=== PATIENT | female | born 1955 | race Caucasian/White ===

== ENCOUNTER → 2018-05-24 10:17 | Outpatient (CLI) | payer OTHER, SELFPAY | PROVIDERS: PCP Family Medicine; Visit Provider Student in an Organized Health Care Education/Training Program | DX: R00.2 Palpitations (principal); I49.1 Atrial premature depolarization | CPT/HCPCS: 0298T ==

== ENCOUNTER 2018-07-07 00:10 | Outpatient (CLI) | payer OTHER, SELFPAY ==
--- NOTE | 2018-07-07 15:13 | DI.MAMMO_ITS ---
SYMPTOM/DIAGNOSIS: SCREENING, Z12.31 MAMMOGRAMS: Mammograms were interpreted according to the usual protocol including computer analysis with CAD system, tomosynthesis and C view imaging. Comparison is made with prior examinations. Breast density, category B. No suspicious microcalcifications are seen. No suspicious masses are seen in the left breast. There is a focal asymmetric density in the central right breast on the CC view. This area should be further evaluated with spot compression view. Ultrasound may be indicated at that time. IMPRESSION: Additional views of the right breast as described above. Category 0. MQSA ASSESSMENT OF FINDINGS: Incomplete: Needs additional imaging evaluation. Category 0. Patient will receive a letter notifying them of these results. BI-RADS category B. There are scattered areas of fibroglandular density.
== END 2018-07-07 00:30 ==
PROVIDERS: PCP Family Medicine; Visit Provider Family Medicine
DX: Z12.31 Encounter for screening mammogram for malignant neoplasm of breast (principal); R92.8 Other abnormal and inconclusive findings on diagnostic imaging of breast
CPT/HCPCS: 77063; 77067

== ENCOUNTER 2018-07-21 01:15 | Outpatient (CLI) | payer OTHER, SELFPAY ==
--- NOTE | 2018-07-21 14:20 | DI.COMBO_ITS ---
SYMPTOM/DIAGNOSIS: F.U ABNL MAMMO, ASYMMETRIC DENSITY RIGHT BREAST ADDITIONAL VIEWS AND RIGHT BREAST ULTRASOUND: Additional images are interpreted according to the usual protocol including tomosynthesis and 2D imaging. There is again seen a well circumscribed, 0.6 mm. nodule in the posterior aspect of the right breast seen on the craniocaudad view. Prior examinations do show a nodular area in this region measuring 4-5 mm. No definite suspicious findings are seen mammographically. A right breast ultrasound was performed. All four quadrants of the right breast were evaluated sonographically. No cystic or solid masses are seen. IMPRESSION: No evidence for malignancy at this time. A 6 month follow up right mammogram is requested for re-evaluation. Category 3. The findings were discussed with the patient and her family. MQSA ASSESSMENT OF FINDINGS: Probably benign. Six month follow-up recommended. Category 3. Patient will receive a letter notifying them of these results. BI-RADS category B. There are scattered areas of fibroglandular density.
== END 2018-07-21 01:35 ==
PROVIDERS: PCP Family Medicine; Visit Provider Family Medicine
DX: Z12.31 Encounter for screening mammogram for malignant neoplasm of breast (principal); R92.8 Other abnormal and inconclusive findings on diagnostic imaging of breast; N60.81 Other benign mammary dysplasias of right breast
CPT/HCPCS: 76642; 77061; 77065; G0279

== ENCOUNTER 2018-12-23 02:08 | Outpatient (CLI) | payer OTHER, SELFPAY ==
[2018-12-23 10:45] LABS: Hemoglobin A1C 8.8 % (4.5-6.2)
== END 2018-12-23 02:28 ==
PROVIDERS: PCP Family Medicine; Visit Provider Family Medicine
DX: E11.65 Type 2 diabetes mellitus with hyperglycemia (principal)
CPT/HCPCS: 36415; 83036

== ENCOUNTER → 2018-12-29 16:37 | Outpatient (REF) | payer OTHER, SELFPAY ==
--- NOTE | 2018-12-29 14:30 | PAPFT_PTH ---
PATIENT: Debbie Lezama LOC: [facility] U#:[id number] AGE/SX: 70/F ROOM: RE12/29/[address]: Mateo Oneal MD : 1955 BED: DIS: SPEC #: [id number] RECD: 01/01/19 12:20 STATUS: GISSEL REQ #: [id number] ASHLEE: 12/29/18 14:[address]: Mateo Oneal DEPT: [facility] Cytology RECD BY: Taina Wilhelm Tissues: 1 - CX/ENDOCX FOR PAP SMEARS Procedures: PAP THIN PREP/UVM Screening Comments: [id number] (UNSATISFACTORY FOR EVALUATION)
== END ==
LOC: LBN 16:37
PROVIDERS: PCP Family Medicine; Visit Provider Family Medicine
DX: Z12.4 Encounter for screening for malignant neoplasm of cervix (principal); Z11.51 Encounter for screening for human papillomavirus (HPV)
CPT/HCPCS: 88142; 87624

== ENCOUNTER 2019-01-01 21:04 | Emergency (ER) | payer OTHER, SELFPAY ==
[2019-01-01 21:15] VITALS: BP 173/81; PULSE 83; RESP 18; TEMP 36.6; O2SAT 98
--- NOTE | 2019-01-01 21:29 | W.ED.GENAD ---
Discharge Plan Disposition Patient Disposition: HOME Condition: Improving Discharge Details Chief Complaint: Orthopedic Clinical Impression: Osteoarthritis of left shoulder region Primary Care Provider: Mateo Oneal ED Provider: Michael Bai Home Meds and New Rx's Prescriptions: Continued atorvastatin 80 mg tablet 80 mg PO DAILY Qty: 90 RF: 3 pen needle, diabetic [Pen Needle] 31 gauge x 5/16 needle 1 ea Miscellaneous QID Qty: 120 RF: 11 aspirin [Aspir-81] 81 MG tablet,delayed release (DR/EC) 81 mg PO DAILY RF: 0 Metoprolol Succinate 200 MG TAB.ER.24H 200 mg PO DAILY Qty: 90 RF: 4 blood-glucose meter [MetroLinkedTouch UltraMini] 1 EACH kit 1 ea Miscellaneous TID Qty: 1 RF: 0 lansoprazole [Prevacid] 30 MG capsule,delayed release(DR/EC) 1 cap PO DAILY Qty: 90 RF: 3 metformin 500 mg tablet 1,000 mg PO BID Qty: 360 RF: 3 Lyrica 75 mg capsule 75 mg PO BID Qty: 60 RF: 5 Lantus Solostar U-100 Insulin 100 unit/mL (3 mL) insulin pen 70 unit Sub-Q HS Qty: 20 RF: 8 Humalog KwikPen Insulin 200 unit/mL (3 mL) insulin pen 25 - 35 unit subcut TID Qty: 15 RF: 11 lisinopril 5 mg tablet 5 mg PO DAILY Qty: 90 RF: 3 bupropion HCl [Wellbutrin SR] 150 mg tablet sustained-release 12 hr 150 mg PO BID Qty: 60 RF: 11 clopidogrel 75 mg tablet 75 mg PO DAILY Qty: 90 RF: 4 Jardiance 10 mg tablet 10 mg PO DAILY Qty: 30 RF: 5 Blood Glucose Test strip 1 ea Miscellaneous TID Qty: 400 RF: 3 lancets [BD Ultra Fine Lancets] 33 gauge misc .ROUTE .MEDSUPPLY Qty: 300 RF: 3 nitroglycerin 0.4 mg tablet, sublingual 0.4 mg Sublingual q 5 min prn MDD 3 tabs Qty: 25 RF: 0 furosemide [Lasix] 20 mg tablet 20 mg PO DAILY PRN (Reason: edema) Qty: 30 RF: 3 Discharge Instructions Instructions: Arthritis (ED) Additional Instructions: Please wear sling for comfort 3-7 days time. Remove 2-3 times daily and perform gentle range of motion exercises as we discussed. Ice to area to reduce discomfort please use 20 minutes at a time. Continue your regular medications. Please follow-up with physical therapy as prescribed. Return if you develop a rash, increasing discomfort, or any other acute concern Stand Alone Forms: Physical Therapy Referral Medical Decision Making 63-year-old female with a number of chronic medical conditions who presents to the ER complaining of 7 days of aching left shoulder pain is worse with movement. There is no antecedent injury. She has not been ill in any other way. Her vital signs are reassuring with note of some hypertension. She is tender anteriorly along the proximal humerus. Differential diagnosis includes calcific tendinitis, occult fracture, osteoarthritis. Patient had screening EKG obtained and referred for x-ray. There is no acute fracture or dislocation. Discussed with the patient consideration of injection with Kenalog and local anesthetic which she declined. We will place in a sling for comfort with use of ice at home. Discussed with her the avoidance of a frozen shoulder and use of range of motion exercises daily and I will prescribed per physical therapy. Consistent with flare of osteoarthritis. She is stable for discharge to home. ECG Data Attestation: I personally reviewed and interpreted this ECG (s) as follows: Interpretation: Normal sinus rhythm with a rate of 67, the QRS is narrow, there is no ST segment elevation. HPI General Mode of arrival: ambulatory. Date/Time Provider Initiated Documentation: 01/01/19 21:23. Limitations to Documentation: no limitations. Information obtained by: patient. History of Present Illness 63 year old F presents to the emergency department with the chief complaint of Left shoulder pain times 7 days, described as moderate, Quality is described as aching and dull, and is localized to the left and upper extremity. Patient reports no radiation. Patient started experiencing this day(s) Rest improves symptom(s), Movement worsens symptoms . Patient notes no other symptoms.; denies chest pain. Patient did receive the following treatments prior to arrival, none Related Data Home Medications Medication Instructions Recorded Confirmed aspirin [Aspir-81] 81 mg PO DAILY tab-cap 01/04/17 12/29/18 blood-glucose meter [OneTouch #1 kit 03/07/18 12/29/18 UltraMini] lansoprazole [Prevacid] 1 cap PO DAILY #90 tab-cap 05/24/18 12/29/18 metformin 500 mg tablet 1,000 mg PO BID #360 tab 06/23/18 12/29/18 pregabalin 75 mg capsule 75 mg PO BID #60 cap 08/29/18 12/29/18 insulin glargine (U-100) 100 70 unit SUB-Q HS #20 ml 11/08/18 12/29/18 unit/mL (3 mL) subcutaneous pen insulin lispro (U-200) 200 unit/mL 25 - 35 unit SUBCUT TID #15 pen 11/17/18 12/29/18 (3 mL) subcutaneous pen bupropion HCl SR 150 mg tablet,12 150 mg PO BID #60 tab-cap 12/18/18 12/29/18 hr sustained-release clopidogrel 75 mg tablet 75 mg PO DAILY #90 tab-cap 12/18/18 12/29/18 lisinopril 5 mg tablet 5 mg PO DAILY #90 tab-cap 12/18/18 12/29/18 atorvastatin 80 mg tablet 80 mg PO DAILY #90 tab-cap 12/29/18 12/29/18 pen needle, diabetic 31 gauge x #120 ndl 12/29/18 12/29/1803/01 blood sugar diagnostic strips #400 strip 01/01/19 empagliflozin 10 mg tablet 10 mg PO DAILY #30 tab 01/01/19 furosemide 20 mg tablet 20 mg PO DAILY PRN #30 tab-cap 01/01/19 lancets 33 gauge #300 each 01/01/19 nitroglycerin 0.4 mg sublingual 0.4 mg SUBLINGUAL q 5 min prn #25 01/01/19 tablet tab-cap MDD 3 tabs Previous Rx's Medication Instructions Recorded blood-glucose meter [OneTouch #1 kit 03/07/18 UltraMini] lansoprazole [Prevacid] 1 cap PO DAILY #90 tab-cap 05/24/18 metformin 500 mg tablet 1,000 mg PO BID #360 tab 06/23/18 pregabalin 75 mg capsule 75 mg PO BID #60 cap 08/29/18 insulin glargine (U-100) 100 70 unit SUB-Q HS #20 ml 11/08/18 unit/mL (3 mL) subcutaneous pen insulin lispro (U-200) 200 unit/mL 25 - 35 unit SUBCUT TID #15 pen 11/17/18 (3 mL) subcutaneous pen bupropion HCl SR 150 mg tablet,12 150 mg PO BID #60 tab-cap 12/18/18 hr sustained-release clopidogrel 75 mg tablet 75 mg PO DAILY #90 tab-cap 12/18/18 lisinopril 5 mg tablet 5 mg PO DAILY #90 tab-cap 12/18/18 atorvastatin 80 mg tablet 80 mg PO DAILY #90 tab-cap 12/29/18 pen needle, diabetic 31 gauge x #120 ndl 12/29/1803/01 blood sugar diagnostic strips #400 strip 01/01/19 empagliflozin 10 mg tablet 10 mg PO DAILY #30 tab 01/01/19 furosemide 20 mg tablet 20 mg PO DAILY PRN #30 tab-cap 01/01/19 lancets 33 gauge #300 each 01/01/19 nitroglycerin 0.4 mg sublingual 0.4 mg SUBLINGUAL q 5 min prn #25 01/01/19 tablet tab-cap MDD 3 tabs Allergies Allergy/AdvReac Type Severity Reaction Status Date / Time Penicillins Allergy Severe Anaphylaxsi Unverified 12/29/18 14:11 s General Stated Complaint: Orthopedic CHRISSY: 3 Review of Systems Review of Systems No chest pain, palpitations, shortness of breath. No fall or injury. No rash. 8 systems reviewed and otherwise negative [facility] Medical History CAD (coronary artery disease) Diabetes History of tobacco abuse RI (myocardial infarction) Obesity Surgical History Bilateral salpingectomy with oophorectomy Cervical Conization/LEEP (~2001) Colonoscopy - MAC (08/02/17) Stent placement Family History Mother Hyperlipidemia Ovarian cancer Father Diabetes Essential hypertension Heart disease Depression Hyperlipidemia Brother Diabetes Essential hypertension Depression Heart disease Hyperlipidemia Cancer Maternal Grandfather Diabetes Alcohol abuse Cancer Paternal Grandfather Diabetes Essential hypertension Heart disease Hyperlipidemia Paternal Grandmother Essential hypertension Heart disease Depression Diabetes Hyperlipidemia Sister Cancer Maternal Aunt Personal history of malignant neoplasm Sister Diabetes Heart disease Hyperlipidemia Stroke Sister Cancer Brother Essential hypertension Hyperlipidemia Stroke Brother No problems noted. Sister No problems noted. Son No problems noted. Daughter No problems noted. Social History Smoking/Tobacco Use Status: Former Tobacco Use Quit Date: 12/15/18 Alcohol Intake: never Drug use: Never Substance use type: does not use Caregiver/Support person: No Household members: spouse Housing: house Communication Needs: None Pets and animals: Yes Pets and animals: dog(s) Sexually active: No Do you think of yourself as: straight/heterosexual Current gender identity: female What is your relationship status?: How often do you talk on the phone with friends or family?: once per week How often do you get together with friends or relatives?: three or more times per week How often do you attend islam or spiritism services?: decline to answer Do you belong to any clubs or organized social groups?: no Panel score (0-1 are the most socially isolated patients): 2 Hailee/Quaker: Restorationism Special hailee needs: No Seatbelt use: always Helmet use: No Drive intox or ride w/intox local city driver: No Do you feel safe at home: Yes Do you feel safe in your relationship?: Yes Exam Narrative Exam Narrative: GEN: awake, alert, oriented 3. Pleasant, well groomed, interactive. HEAD: Normocephalic, atraumatic ENT: Mucous membranes moist, oropharynx unremarkable, External ear exam unremarkable EYES: PERRL, EOMI NECK: Full ROM, no SALVADOR, no menigismus CHEST/RESP: Nontender, clear to auscultation bilateral, no wheeze/rhonchi/rales CARDIOVASCULAR: RRR, no murmur, rub edward. 2+ Rad pulse bilateral ABDOMEN: Soft, nontender, no mass. +Bowel sounds EXT: Full ROM, no edema, no rash. Left anterior humerus is tender to palpation. Motor is 5 out of 5. Sensation intact throughout Neuro: Grossly normal neurologic exam, conversant, interactive. Psych: Speech fluent, thoughts congruent, affect normal Course Vital Signs Temperature 36.6 C 01/01/19 21:15 Pulse 83 01/01/19 21:15 Respiratory Rate 18 01/01/19 21:15 Blood Pressure 173/81 H 01/01/19 21:15 Pulse Oximetry 98 01/01/19 21:15 Temperature 36.6 C 01/01/19 21:15 Temperature Source Skin 01/01/19 21:15 Pulse 83 01/01/19 21:15 Respiratory Rate 18 01/01/19 21:15 Respiratory Effort Non-Labored 01/01/19 21:19 Blood Pressure 173/81 H 01/01/19 21:15 Blood Pressure Position Sitting 01/01/19 21:15 Pulse Oximetry 98 01/01/19 21:15 Oxygen Delivery Method Room Air 01/01/19 21:15 Oxygen Flow Rate 0 01/01/19 21:15 Pain Level 7 01/01/19 21:15
--- NOTE | 2019-01-01 22:15 | DI.RAD_ITS ---
SYMPTOM/DIAGNOSIS: LT ANTERIOR SHOULDER PAIN LEFT SHOULDER: The bony structures are normally mineralized. There are mild degenerative changes involving the glenohumeral and AC joint. There is no evidence of a fracture or dislocation.
--- NOTE | 2019-01-01 22:54 | DI.VRAD_ITS ---
EXAM: XR Left Shoulder, Complete, 2 or More Views EXAM DATE/TIME: 01/01/2019 9:29 PM CLINICAL HISTORY: 63 years old, female; Pain; Shoulder; Left; Patient HX: L anterior shoulder pain. No trauma or fall but has been aching for awhile now and getting worse TECHNIQUE: XR Left shoulder, complete 2 or more views. COMPARISON: No relevant prior studies available. FINDINGS: Bones/joints: No displaced fractures identified. Soft tissues: Normal. IMPRESSION: No acute findings. Dictated and Authenticated by: Fei Busch MD. Ordering:GARY Rodriguez MD
== END 2019-01-01 22:57 | disposition home or self-care (01) ==
PROVIDERS: Emergency Provider Emergency Medicine; PCP Family Medicine
DX: M19.011 Primary osteoarthritis, right shoulder (principal); E11.9 Type 2 diabetes mellitus without complications; I25.2 Old myocardial infarction
CPT/HCPCS: 93005; 99284; 73030; 93010; 99282; L3650

== ENCOUNTER 2019-01-09 01:10 | Outpatient (CLI) | payer OTHER, SELFPAY ==
--- NOTE | 2019-01-09 08:51 | DI.US_ITS ---
SYMPTOMS/DIAGNOSIS: ABD BLOATING, ABD PAIN, ABD DISTENSION, MOTHER WITH HX OF OVARIAN CA ABDOMINAL ULTRASOUND: The visualized liver parenchyma is normal in appearance. There is no evidence of cholelithiasis. The common bile duct is of normal diameter. The pancreas and spleen appear intact. No renal abnormality is seen. The abdominal aorta is of normal diameter. Normal appearance of IVC. CONCLUSION: Normal abdominal ultrasound. PELVIC ULTRASOUND: Pelvic ultrasound was performed transabdominally and transvaginally. Please see the accompanying data sheet for measurements of the pelvic structures. The uterus is heterogeneous and appears to contain multiple focal fibroids, the largest clearly identified presumed fibroid measures about 14 mm in diameter in the fundus. The endometrial stripe is less than 2 mm in thickness and appears homogeneous. No free fluid identified in the cul-de-sac. The ovaries are not ideally visualized but there is suggestion of bilateral ovarian enlargement and possible right ovarian or paraovarian complex mass may be present. Question mildly abnormal vascular flow to the right adnexa is possible. CONCLUSION: Indeterminate findings of the ovaries. Ovarian enlargement may be present bilaterally and there is a suspicion of a right ovarian mass. Correlation with pelvic MRI is recommended.
== END 2019-01-09 01:30 ==
PROVIDERS: PCP Family Medicine; Visit Provider Family Medicine
DX: R14.0 Abdominal distension (gaseous) (principal); R10.31 Right lower quadrant pain; Z80.41 Family history of malignant neoplasm of ovary; N83.8 Other noninflammatory disorders of ovary, fallopian tube and broad ligament; D25.9 Leiomyoma of uterus, unspecified
CPT/HCPCS: 76700; 76830; 76856

== ENCOUNTER 2019-01-16 01:50 | Outpatient (CLI) | payer OTHER, SELFPAY ==
[2019-01-16] MEDS: Gadoterate meglumine 20 ML VIAL 18 ML IVP (09:08)
--- NOTE | 2019-01-16 09:20 | DI.MRI_ITS ---
SYMPTOM/DIAGNOSIS: RT OVARIAN MASS ON US, N83.9, NONINFLAMMATORY DISORDER OF OVARY PELVIS MRI: A without and with contrast enhanced examination was performed. There is no evidence of free fluid. An ill defined right adnexal cyst is seen and measures approximately 5 by 3.8 by 3.4 cm. The cyst has simple cyst characteristics. The presence of adjacent bowel somewhat limits the evaluation. No bony abnormality is seen. The study is somewhat limited due to motion. SUMMARY: Ill defined right adnexal cyst with ill defined margins. A short interval follow up could be obtained with ultrasound and MRI in 3 months to assess stability.
--- NOTE | 2019-01-16 16:13 | DI.VRAD_ITS ---
EXAM: MR Pelvis Without and With Contrast EXAM DATE/TIME: 01/16/2019 9:30 AM CLINICAL HISTORY: 63 years old, female; Pain; Pelvic pain; Patient HX: RT ovarian mass. ; Additional info: Non-inflammatory disorder of ovary. TECHNIQUE: Imaging protocol: Magnetic resonance images of the pelvis without and with intravenous contrast. Contrast material: DOTAREM Contrast volume: 18 ml Contrast route: IV COMPARISON: US ABD PELV TRANSVAG NON-DIETETIC INTERN 01/09/2019 5:07 PM FINDINGS: Intraperitoneal space: No free fluid. Reproductive: There is an ill-defined right adnexal cyst like focus seen to measure up to 5.1 x 3.8 x 3.4 cm. No significant enhancing portion of the cyst is noted and the cystlike focus displays simple cyst characteristics. Adjacent bowel somewhat limits evaluation. Bones/joints: No fracture. Other findings: Motion somewhat limits evaluation IMPRESSION: Ill-defined right adnexal cystlike focus with simple features by MRI, but ill-defined margins. Short interval followup ultrasound and MRI in 3 months is recommended to assess for interval changes. Dictated and Authenticated by: Den Wilkes MD. Ordering:SPENCER Galindo MD
== END 2019-01-16 02:10 ==
PROVIDERS: PCP Family Medicine; Visit Provider Family Medicine
DX: N83.8 Other noninflammatory disorders of ovary, fallopian tube and broad ligament (principal)
CPT/HCPCS: 72197

== ENCOUNTER 2019-01-19 20:28 | Outpatient (CLI) | payer OTHER, SELFPAY ==
--- NOTE | 2019-01-19 14:55 | DI.MAMMO_ITS ---
SYMPTOMS/DIAGNOSIS: 6-MO F/U, F/U ABNORMAL MAMMO, R92.8 RIGHT BREAST MAMMOGRAM: Mammograms were interpreted according to the usual protocol including computer analysis with CAD system, tomosynthesis and C view imaging. Today's mammogram was obtained to follow an area of asymmetric density identified on previous mammogram of June 2018. The findings are less prominent on the current examination. No new mass or clumped microcalcification seen. CONCLUSION: No specific evidence of malignancy at this time. I would suggest that routine screening examinations resume with a bilateral mammogram in six months. Category 3, breast density category B. MQSA ASSESSMENT OF FINDINGS: Probably benign. Six month follow-up recommended. Category 3. Patient will receive a letter notifying them of these results. BI-RADS category B. There are scattered areas of fibroglandular density.
== END 2019-01-19 20:48 ==
PROVIDERS: PCP Family Medicine; Visit Provider Family Medicine
DX: Z12.31 Encounter for screening mammogram for malignant neoplasm of breast (principal); R92.8 Other abnormal and inconclusive findings on diagnostic imaging of breast; N64.59 Other signs and symptoms in breast
CPT/HCPCS: 77061; 77065; G0279

== ENCOUNTER 2019-01-23 13:54 | Outpatient (CLI) | payer OTHER, SELFPAY ==
[2019-01-24 09:35] LABS: CEA 1.3 ng/ml
[2019-01-24 12:52] LABS: CA 19-9 7 U/mL (<35)
[2019-01-24 12:54] LABS: CA 125 10 U/mL (0-30)
== END 2019-01-23 14:14 ==
PROVIDERS: PCP Family Medicine; Visit Provider Obstetrics & Gynecology
DX: N83.9 Noninflammatory disorder of ovary, fallopian tube and broad ligament, unspecified (principal)
CPT/HCPCS: 36415; 82378; 86304; 86301

== ENCOUNTER 2019-01-23 14:09 | Outpatient (REF) | payer OTHER, SELFPAY ==
--- NOTE | 2019-01-23 13:40 | PAPFT_PTH ---
PATIENT: Debbie Lezama LOC: N U#:[id number] AGE/SX: 63/F ROOM: RE01/23/[address]: Juan Vazquez MD : 1955 BED: DIS: 01/23/2019 SPEC #: [id number] RECD: 01/23/19 17:43 STATUS: IGSSEL [place] #: [id number] ASHLEE: 01/23/19 13:[address]: Juan Vazquez DEPT: [facility] [place] Cytology RECD BY: Lizette Roman ENTERED: 01/23/19 17:43 SP TYPE: PAPFT NEYR DR: Mateo Oneal MD Tissues: 1 - CX/ENDOCX FOR PAP SMEARS Procedures: PAP THIN PREP/UVM Screening HPV DNA PROBE Comments: [id number]
== END 2019-01-23 14:29 ==
LOC: LBN 14:09
PROVIDERS: PCP Family Medicine; Visit Provider Obstetrics & Gynecology
DX: Z12.4 Encounter for screening for malignant neoplasm of cervix (principal); Z11.51 Encounter for screening for human papillomavirus (HPV)
CPT/HCPCS: 88142; 87624

== ENCOUNTER → 2019-02-12 09:30 | Outpatient (BNVA) | payer OTHER, SELFPAY | PROVIDERS: PCP Family Medicine; Visit Provider Student in an Organized Health Care Education/Training Program | DX: I21.11 ST elevation (STEMI) myocardial infarction involving right coronary artery (principal); Z95.5 Presence of coronary angioplasty implant and graft; I10 Essential (primary) hypertension; Z79.01 Long term (current) use of anticoagulants; E78.5 Hyperlipidemia, unspecified; E11.9 Type 2 diabetes mellitus without complications; Z01.810 Encounter for preprocedural cardiovascular examination | CPT/HCPCS: 99215 ==

== ENCOUNTER 2019-03-07 12:50 | Outpatient (CLI) | payer OTHER, SELFPAY | END 2019-03-07 13:10 | PROVIDERS: PCP Family Medicine; Visit Provider Obstetrics & Gynecology | DX: Z01.818 Encounter for other preprocedural examination (principal) | CPT/HCPCS: J1580 ==

== ENCOUNTER 2019-03-07 13:32 | Outpatient (CLI) | payer OTHER, SELFPAY ==
[2019-03-07 13:56] LABS: HCT 33.3 % (36.0-46.0); HGB 9.7 g/dL (12.0-15.5); Mean Corp. HGB Concentration 29.1 g/dL (32.0-36.0); Mean Corpuscular Volume 72.1 fL (80-95); Mean Platelet Volume 10.1 fL (8.0-11.0); Platelet Count 473 x1000/uL (130-400); RBC 4.62 m/cumm (4.00-5.20); RBC Distribution Width 18.7 % (11.7-14.6); White Blood Cell Count 10.82 k/cumm (4.4-10.8)
== END 2019-03-07 13:52 ==
PROVIDERS: PCP Family Medicine; Visit Provider Obstetrics & Gynecology
DX: N83.8 Other noninflammatory disorders of ovary, fallopian tube and broad ligament (principal); Z01.818 Encounter for other preprocedural examination; E11.9 Type 2 diabetes mellitus without complications; I10 Essential (primary) hypertension
CPT/HCPCS: 36415; 85027; 86850; 86900; 86901

== ENCOUNTER 2019-03-08 07:00 | Day surgery (SDC) | payer OTHER, SELFPAY ==
[2019-03-08 07:31] VITALS: BP 175/94; PULSE 87; RESP 18; TEMP 36.8; O2SAT 95
[2019-03-08] MEDS: Lactated Ringers 1,000 ML 100 ML IV ×2 (08:07→11:30)
[2019-03-08] MEDS: CLINDAMYCIN 900 MG/50 ML BAG 50 MG IVPB (09:38)
--- NOTE | 2019-03-08 09:55 | VUL_PTH ---
PATIENT: Debbie Lezama LOC: [facility] U#:[id number] AGE/SX: 63/F ROOM: RE03/08/[address]: Juan Vazquez MD : 1955 BED: DIS: 03/08/2019 SPEC #: [id number] RECD: 03/08/19 11:49 STATUS: GISSEL RE #: [id number] ASHLEE: 03/08/19 09:[address]: Juan Vazquez DEPT: Surgical Specimen RECD BY: Lizette Roman ENTERED: 03/08/19 11:53 SP TYPE: VUL OTHR DR: Mateo Oneal MD Tissues: 1 - VULVA BIOPSY 2 - PERITONEUM/ERIC BIOPSY 3 - FALLOPIAN TUBE (OTHER) 4 - FALLOPIAN TUBE (OTHER) Procedures: GROSS AND MICRO LEVEL 4 Comments: [id number]
[2019-03-08] MEDS: Bupivacaine 0.25% Pres-Free 30 ML VIAL (10:24)
[2019-03-08 11:38] VITALS: BP 184/65; PULSE 83; RESP 17; TEMP 36.8
[2019-03-08 11:43] VITALS: BP 165/80; PULSE 95; RESP 15; TEMP 36.8
[2019-03-08 11:48] VITALS: BP 170/63; PULSE 85; RESP 16; TEMP 36.8
[2019-03-08 12:03] VITALS: BP 156/77; PULSE 74; RESP 12; TEMP 36.8
[2019-03-08] MEDS: HYDROcodone 5/Acetaminophen 325 TAB PO (13:02)
[2019-03-08 13:15] VITALS: BP 149/78; PULSE 82; RESP 16; TEMP 37.2; O2SAT 94
--- NOTE | 2019-03-08 16:30 | W.PM.OP ---
Date of service: 03/08/19 Time of Service: 16:30 Operative Note DATE OF PROCEDURE: 03/08/19 PRE-OP DIAGNOSIS: Ovarian cyst POST-OP DIAGNOSIS: other (1. Paraovarian cysts bilaterally. 2. Vulvar lesion) PROCEDURE: 1. Biopsy of vulvar lesion x 2 2. Laparoscopic bilateral salpingo-oophorectomy SURGEON: Juan Vazquez ASSISTING SURGEON: Nunu Mccoy ANESTHESIA: GETA ESTIMATED BLOOD LOSS: 0 PATHOLOGY: other (1. Vulvar biopsy x 2 2. Bilateral tubes and ovaries. ) COMPLICATIONS: None Patient was transported to: PACU Patient's condition: stable Findings: 1. Vulvar lesion at the clitoral mast suspicious for SCC 2. Pigmented hypopigmented lesion on perineum 3. bilateral para-ovarian cysts contained within the broad ligament but distinct from tubes and ovaries. Procedure Description: The patient was taken to the operating room and after general anesthesia was obtained the patient placed in lithotomy position. The patient was prepped and draped in usual sterile manner. On exam under anesthesia there were 2 suspicious skin lesions on the vulva. The first was involving the clitoral mast and was suspicious for SCC. The overall size of lesion in greatest dimension was 1 cm. On the perineum there were areas of hypo-and hyperpigmentation. With use of a Aubrey biopsy punch specimens were taken from both regions and biopsy sites were repaired with interrupted sutures of 4-0 Vicryl. A Larson catheter was placed in the bladder draining clear urine. A Hulka uterine manipulator was placed in the cervix. Attention was then turned to the patient's abdomen the surgeon was regloved. The skin and subcutaneous tissues at the umbilicus were infiltrated with 0.25% Marcaine solution. A small infraumbilical skin incision was then made with a #15 blade scalpel. Dissection was carried down to the underlying fascia which was grasped and elevated with 2 Liseth clamps. The fascia was incised sharply with the scalpel and the peritoneum was entered sharply with hemostats. 2 sutures of 0 Vicryl were placed at the fascial incision. A Gonzalez trocar was inserted and secured in place. A pneumoperitoneum to approximately 50 mmHg was established. Two 5 mm ports were placed in the right left lower quadrant both under direct visualization. A third 5 mm port was placed in the right upper quadrant due to the need to mobilize in order to best visualize the pelvis. The right tube and ovary was first examined. The ovary was noted to be normal in appearance. Within the broad ligament at the mesosalpinx a large cystic area measuring 4 to 5 cm in greatest dimension was noted. It seemed distinct from the fallopian tube and the ovary. The right ureter was identified at the pelvic brim. Dissection was first carried across the right infundibulopelvic ligament with LigaSure device with dissection carried down the broad ligament to the round ligament incorporating the cystic mass within the dissected area. The 2 ovary and paratubal cyst were removed en bloc. Attention was turned to the opposite side where a smaller para-ovarian cyst was noted. Again a similar dissection was carried out. Both specimens were removed with the use of an Endo Catch bag and submitted separately. All sites of dissection were noted with hemostatic. All 5 mm ports were removed under direct visualization. The abdomen was desufflated. The fascia at the umbilicus was closed with 2 retgzl-of-psiwv sutures of 0 Vicryl. The skin at each incision was closed with interrupted sutures of 4 Monocryl. Dermabond was applied. Procedure was concluded at this point. Sponge, lap, and needle counts were correct at the conclusion of the procedure. The procedure was tolerated well and the patient was transferred to PACU in stable condition.
== END 2019-03-08 13:45 | disposition home or self-care (01) ==
LOC: SUR 07:00
PROVIDERS: PCP Family Medicine; Visit Provider Obstetrics & Gynecology
PROC: (CPT 58661; principal; 2019-03-08 08:30)
DX: D07.1 Carcinoma in situ of vulva (principal); N83.8 Other noninflammatory disorders of ovary, fallopian tube and broad ligament; N94.89 Other specified conditions associated with female genital organs and menstrual cycle; E11.65 Type 2 diabetes mellitus with hyperglycemia; Z80.41 Family history of malignant neoplasm of ovary; Z79.4 Long term (current) use of insulin; Z87.42 Personal history of other diseases of the female genital tract
CPT/HCPCS: 58661; 56605; 56606; 88305; 88304; J1885; J2405; J3010

== ENCOUNTER 2019-03-17 11:03 | Emergency (ER) | payer OTHER, SELFPAY ==
[2019-03-17 11:09] VITALS: BP 165/68; PULSE 100; RESP 20; TEMP 36.8; O2SAT 98
--- NOTE | 2019-03-17 11:48 | ED.GENADUL_ITS ---
Discharge Plan Disposition Patient Disposition: HOME Condition: Good Discharge Details Chief Complaint: Cellulitis Clinical Impression: Incisional infection Primary Care Provider: Mateo Oneal ED Provider: Mica Kay Home Meds and New Rx's Prescriptions: New sulfamethoxazole-trimethoprim [Bactrim DS] 800-160 mg tablet 1 tab PO BID Qty: 14 RF: 0 hydrocodone-acetaminophen 5-325 mg tablet 1 tab PO Q6H Qty: 10 RF: 0 Continued pen needle, diabetic [Pen Needle] 31 gauge x 5/16 needle 1 ea Miscellaneous QID Qty: 120 RF: 11 rosuvastatin 40 mg tablet 40 mg PO QHS Qty: 90 RF: 0 lisinopril 5 mg tablet 10 mg PO DAILY Qty: 180 RF: 3 oxycodone-acetaminophen 5-325 mg tablet 1 tab PO Q6H MDD 4 PRN (Reason: pain) Qty: 5 RF: 0 aspirin [Aspir-81] 81 MG tablet,delayed release (DR/EC) 81 mg PO DAILY RF: 0 Metoprolol Succinate 200 MG TAB.ER.24H 200 mg PO DAILY Qty: 90 RF: 4 blood-glucose meter [[employer] UltraMini] 1 EACH kit 1 ea Miscellaneous TID Qty: 1 RF: 0 lansoprazole [Prevacid] 30 MG capsule,delayed release(DR/EC) 1 cap PO DAILY Qty: 90 RF: 3 Lantus Solostar U-100 Insulin 100 unit/mL (3 mL) insulin pen 70 unit Sub-Q HS Qty: 20 RF: 8 Humalog KwikPen Insulin 200 unit/mL (3 mL) insulin pen 25 - 35 unit subcut TID Qty: 15 RF: 11 bupropion HCl [Wellbutrin SR] 150 mg tablet sustained-release 12 hr 150 mg PO BID Qty: 60 RF: 11 Jardiance 10 mg tablet 10 mg PO DAILY Qty: 30 RF: 5 nitroglycerin 0.4 mg tablet, sublingual 0.4 mg Sublingual q 5 min prn MDD 3 tabs Qty: 25 RF: 0 furosemide [Lasix] 20 mg tablet 20 mg PO DAILY PRN (Reason: edema) Qty: 30 RF: 3 Blood Glucose Test strip 1 ea Miscellaneous TID Qty: 300 RF: 3 lancets [BD Ultra Fine Lancets] 33 gauge misc .ROUTE .MEDSUPPLY Qty: 300 RF: 3 pen needle, diabetic [Easy Comfort Pen Kanaranzi] 32 gauge x 5/32 needle .ROUTE .MEDSUPPLY Qty: 200 RF: 5 insulin syringe-needle U-100 [Droplet Insulin Syringe] 1 mL 30 gauge x 5/16 syringe .ROUTE .MEDSUPPLY Qty: 300 RF: 5 insulin syringe-needle U-100 [BD Insulin Syringe Ultra-Fine] 1 mL 31 gauge x 5/16 syringe .ROUTE .MEDSUPPLY Qty: 400 RF: 3 Lyrica 75 mg capsule 75 mg PO BID Qty: 60 RF: 5 metformin 500 mg tablet 1,000 mg PO BID Qty: 360 RF: 3 magnesium 200 mg Tablet 200 mg PO DAILY RF: 0 hydrocodone-acetaminophen 5-325 mg Tablet 1 tab PO PRN PRNQty: 20 RF: 0 Discharge Instructions Instructions: Wound Infection (ED) Care Plan Goals: Take the antibiotics until finished. Follow up in the clinic at end of this week as scheduled. Return to care for increasing pain, fever, or signs of worsening infection. Discharge Data Discharge Date/Time-TO BE ENTERED AT DEPARTURE: 03/17/19 11:54 Discharge Physician: Mica Kay Medical Decision Making 63-year-old female who is approximate 10 days status post laparoscopic bilateral salpingo oophorectomy for adnexal cysts who presents for mild abdominal pain and clear drainage from the umbilical incision site for the past 2 days. Denies fever, bowel or bladder dysfunction. Vitals within normal limits. Afebrile. Patient appears nontoxic. Abdomen soft and nontender. There is clear drainage from the umbilical incision site but no signs of abscess. Patient was evaluated at bedside by Dr. Vazquez and she is cleared for discharge home with Bactrim. She was also found at the time of surgery to have vulvar lesions which were biopsied and returned RAKEL III and plan is for her to follow- up with [facility] for further evaluation of this. Patient instructed to follow-up with Dr. Vazquez or return immediately to the emergency department any acute worsening or new concerning symptoms. HPI General Mode of arrival: ambulatory . Date/Time Provider Initiated Documentation: 03/17/19 11:17 . Limitations to Documentation: no limitations . Information obtained by: patient . HPI Narrative: Patient is a 63-year-old female who is approximately 10 days s/p laparoscopic bilateral salpingo oophorectomy for adnexal cysts who presents for drainage from umbilicus incision for the past few days. Patient was sent by Dr. Vazquez for evaluation. Dr. Vazquez called to report also that patient was found at the time of surgery to have vulvar lesions which were biopsied and returned RAKEL III. she denies any fever, chills, significant abdominal pain, bowel or bladder abnormalities. She does admit to some pain at the umbilical site and states the drainage has been clear. Related Data Home Medications Medication Instructions Recorded Confirmed aspirin [Aspir-81] 81 mg PO DAILY tab-cap 01/04/17 03/17/19 blood-glucose meter [OneTouch #1 kit 03/07/18 03/17/19 UltraMini] lansoprazole [Prevacid] 1 cap PO DAILY #90 tab-cap 05/24/18 03/17/19 insulin glargine (U-100) 100 70 unit SUB-Q HS #20 ml 11/08/18 03/17/19 unit/mL (3 mL) subcutaneous pen insulin lispro (U-200) 200 unit/mL 25 - 35 unit SUBCUT TID #15 pen 11/17/18 03/17/19 (3 mL) subcutaneous pen bupropion HCl SR 150 mg tablet,12 150 mg PO BID #60 tab-cap 12/18/18 03/17/19 hr sustained-release pen needle, diabetic 31 gauge x #120 ndl 12/29/18 03/17/19/16 empagliflozin 10 mg tablet 10 mg PO DAILY #30 tab 01/01/19 03/17/19 furosemide 20 mg tablet 20 mg PO DAILY PRN #30 tab-cap 01/01/19 03/17/19 nitroglycerin 0.4 mg sublingual 0.4 mg SUBLINGUAL q 5 min prn #25 01/01/19 03/17/19 tablet tab-cap MDD 3 tabs blood sugar diagnostic strips #300 strip 01/02/19 03/17/19 lancets 33 gauge #300 each 01/02/19 03/17/19 lisinopril 5 mg tablet 10 mg PO DAILY #180 tab-cap 02/12/19 03/17/19 rosuvastatin 40 mg tablet 40 mg PO QHS #90 tab 02/12/19 03/17/19 pen needle, diabetic 32 gauge x #200 each 02/13/19 03/17/19 5/32 insulin syringe U-100 with needle #300 each 02/15/19 03/17/19 1 mL 30 gauge x 03/01 insulin syringe U-100 with needle #400 each 02/15/19 03/17/19 1 mL 31 gauge x 516 magnesium 200 mg PO DAILY 03/07/19 03/17/19 oxycodone-acetaminophen 5 mg-325 1 tab PO Q6H PRN #5 tab MDD 4 03/07/19 03/17/19 mg tablet hydrocodone-acetaminophen 1 tab PO PRN PRN #20 tab 03/08/19 03/17/19 pregabalin 75 mg capsule 75 mg PO BID #60 cap 03/08/19 03/17/19 metformin 500 mg tablet 1,000 mg PO BID #360 tab 03/16/19 03/17/19 hydrocodone-acetaminophen 1 tab PO Q6H #10 tab 03/17/19 sulfamethoxazole-trimethoprim 1 tab PO BID #14 tab 03/17/19 [Bactrim DS] Previous Rx's Medication Instructions Recorded blood-glucose meter [OneTouch #1 kit 03/07/18 UltraMini] lansoprazole [Prevacid] 1 cap PO DAILY #90 tab-cap 05/24/18 insulin glargine (U-100) 100 70 unit SUB-Q HS #20 ml 11/08/18 unit/mL (3 mL) subcutaneous pen insulin lispro (U-200) 200 unit/mL 25 - 35 unit SUBCUT TID #15 pen 11/17/18 (3 mL) subcutaneous pen bupropion HCl SR 150 mg tablet,12 150 mg PO BID #60 tab-cap 12/18/18 hr sustained-release pen needle, diabetic 31 gauge x #120 ndl 12/29/1803/01 empagliflozin 10 mg tablet 10 mg PO DAILY #30 tab 01/01/19 furosemide 20 mg tablet 20 mg PO DAILY PRN #30 tab-cap 01/01/19 nitroglycerin 0.4 mg sublingual 0.4 mg SUBLINGUAL q 5 min prn #25 01/01/19 tablet tab-cap MDD 3 tabs blood sugar diagnostic strips #300 strip 01/02/19 lancets 33 gauge #300 each 01/02/19 lisinopril 5 mg tablet 10 mg PO DAILY #180 tab-cap 02/12/19 rosuvastatin 40 mg tablet 40 mg PO QHS #90 tab 02/12/19 pen needle, diabetic 32 gauge x #200 each 02/13/19 insulin syringe U-100 with needle #300 each 02/15/19 1 mL 30 gauge x 516 insulin syringe U-100 with needle #400 each 02/15/19 1 mL 31 gauge x 5/16 oxycodone-acetaminophen 5 mg-325 1 tab PO Q6H PRN #5 tab MDD 4 03/07/19 mg tablet hydrocodone-acetaminophen 1 tab PO PRN PRN #20 tab 03/08/19 pregabalin 75 mg capsule 75 mg PO BID #60 cap 03/08/19 metformin 500 mg tablet 1,000 mg PO BID #360 tab 03/16/19 hydrocodone-acetaminophen 1 tab PO Q6H #10 tab 03/17/19 sulfamethoxazole-trimethoprim 1 tab PO BID #14 tab 03/17/19 [Bactrim DS] Allergies Allergy/AdvReac Type Severity Reaction Status Date / Time Penicillins Allergy Severe Anaphylaxsi Unverified 03/17/19 11:11 s General Stated Complaint: Cellulitis CHRISSY: 3 Review of Systems Review of Systems All systems reviewed & are unremarkable except as noted in HPI and below Constitutional Reports as per HPI, Denies chills and Denies fever(s) Eyes Denies blurry vision ENT Denies dizziness, Denies sore throat and Denies throat swelling Cardiovascular Denies chest pain and Denies dyspnea Respiratory Denies cough and Denies dyspnea Gastrointestinal Reports abdominal pain, Denies diarrhea and Denies vomiting Genitourinary Denies hematuria and Denies dysuria Musculoskeletal Denies back pain and Denies numbness Integumentary/Breasts Denies lesions and Denies rash Neurologic Denies dizziness, Denies focal weakness and Denies numbness Allergic/Immunologic Denies throat swelling [facility] Medical History Depressive disorder (Acute) Peptic reflux disease (Acute) Kidney stone (Chronic) CAD (coronary artery disease) Diabetes History of tobacco abuse [facility] (myocardial infarction) Obesity Surgical History Bilateral salpingectomy with oophorectomy Cervical Conization/LEEP (~2001) Colonoscopy - MAC (08/02/17) Stent placement Family History Mother Hyperlipidemia Ovarian cancer Father Diabetes Essential hypertension Heart disease Depression Hyperlipidemia Brother Diabetes Essential hypertension Depression Heart disease Hyperlipidemia Cancer Maternal Grandfather Diabetes Alcohol abuse Cancer Paternal Grandfather Diabetes Essential hypertension Heart disease Hyperlipidemia Paternal Grandmother Essential hypertension Heart disease Depression Diabetes Hyperlipidemia Sister Cancer Maternal Aunt Personal history of malignant neoplasm Sister Diabetes Heart disease Hyperlipidemia Stroke Sister Cancer Brother Essential hypertension Hyperlipidemia Stroke Brother No problems noted. Sister No problems noted. Son No problems noted. Daughter No problems noted. Social History Smoking/Tobacco Use Status: Former Tobacco Use Quit Date: 12/15/16 Tobacco: How many years used: 20 Alcohol Intake: never Drug use: Never Substance use type: does not use Caregiver/Support person: No Household members: spouse Housing: house Communication Needs: None Pets and animals: Yes Pets and animals: dog(s) Sexually active: No Do you think of yourself as: straight/heterosexual Current gender identity: female What is your relationship status?: How often do you talk on the phone with friends or family?: once per week How often do you get together with friends or relatives?: three or more times per week How often do you attend orthodox or yazdanism services?: decline to answer Do you belong to any clubs or organized social groups?: no Panel score (0-1 are the most socially isolated patients): 2 What type of physical activity do you participate in: none Hailee/Restoration: Pentecostalism Special hailee needs: No Seatbelt use: always Helmet use: No Drive intox or ride w/intox xm1 tank driver: No Do you feel safe at home: Yes Do you feel safe in your relationship?: Yes Female Reproductive History Menstrual Age of Menarche: 12 Menopause type: natural Date of menopause: 10/17/07 History History 3 Para 2 Hx # Term Pregnancies Multiple births Hx # Pregnancies Ectopic pregnancies AB induced Hx Number of Living Children AB spontaneous 1 Exam Const General: cooperative, healthy appearing and no acute distress HENMT Head: normal to inspection Face and sinus: normal facial exam Eyes General: appearance normal, both eyes and all related structures EOM: EOM intact bilaterally Neck Neck: normal visual inspection and No submandibular swelling Lymphatic: no lymphadenopathy noted Chest Chest: normal inspection of the chest and no tenderness Resp Effort & Inspection: normal respiratory effort and able to speak in complete sentences Cardio Rate: regular rate GI Palpation: soft, not firm, not rigid and nontender Abdomen image: 1. Incisional wound with clear drainage. No significant erythema, edema, abscess, bleeding. 2. Laparoscopic wound with Dermabond in place. No signs of infection. Skin General skin exam: no rashes or lesions noted Neuro General: alert, awake and oriented x3 Cognition: normal cognition Speech: speech normal Motor: muscle tone normal throughout Sensory Exam: no sensory deficits noted Extrem General: normal to inspection, full ROM and no edema Psych Appearance: grossly normal Mental Status: mental status grossly normal Speech and Movement: speech and movement normal Affect: normal affect Course Vital Signs Temperature 98.2 F 03/17/19 11:09 Pulse 100 H 03/17/19 11:09 Respiratory Rate 20 03/17/19 11:09 Blood Pressure 165/68 H 03/17/19 11:09 Pulse Oximetry 98 03/17/19 11:09 Temperature 98.2 F 03/17/19 11:09 Temperature Source Temporal Artery Scan 03/17/19 11:09 Pulse 100 H 03/17/19 11:09 Respiratory Rate 20 03/17/19 11:09 Respiratory Effort Non-Labored 03/17/19 11:09 Blood Pressure 165/68 H 03/17/19 11:09 Blood Pressure Position Standing 03/17/19 11:09 Pulse Oximetry 98 03/17/19 11:09 Oxygen Delivery Method Room Air 03/17/19 11:09 Oxygen Flow Rate 0 03/17/19 11:09 Pain Level 4 03/17/19 11:09
--- NOTE | 2019-03-17 11:55 | W.GYNCONSULT ---
Date of service: 03/17/19 Assessment and Plan (1) Incisional infection: Current visit: No Status: Acute Likely this is an early and minor infection. I do not believe that any specific imaging is needed at this point. Will start her on Bactrim DS for one week and a new Rx for [place] is provided. She should still follow up with me at the end of the coming week as scheduled but should be seen sooner if things worsen. (2) RAKEL III (vulvar intraepithelial neoplasia III): Current visit: No Status: Acute I did review her pathology results with her today. My recommendation based on this diagnosis is for referral to [facility] at [facility] and we will facilitate that this week through the clinic. History of Present Illness Chief Complaint: Drainage from incision Narrative: 63 year old now approximately 10 days s/p laparoscopic bilateral salpingo oophorectomy for adnexal cysts. She was also found at the time of surgery to have vulvar lesions which were biopsied and returned RAKEL III. She developed some serous drainage from her umbilical incision 2 days ago. She denies fevers or chills. No significant erythema per patient. Bowel and bladder function have been normal. She does report continued pain at the umbilicus that does not seem to be improving. Consults Consult date: 03/17/19 Review of Systems Review of Systems All systems reviewed & are unremarkable except as noted in HPI and below PFSH Social History Smoking/Tobacco Use Status: Former Tobacco Use Quit Date: 12/15/16 Tobacco: How many years used: 20 Alcohol Intake: never Drug use: Never Substance use type: does not use Caregiver/Support person: No Household members: spouse Housing: house Communication Needs: None Pets and animals: Yes Pets and animals: dog(s) Sexually active: No Do you think of yourself as: straight/heterosexual Current gender identity: female What is your relationship status?: How often do you talk on the phone with friends or family?: once per week How often do you get together with friends or relatives?: three or more times per week How often do you attend holiness or pentecostalism services?: decline to answer Do you belong to any clubs or organized social groups?: no Panel score (0-1 are the most socially isolated patients): 2 What type of physical activity do you participate in: none Hailee/Rastafarian: Oriental Orthodox Special hailee needs: No Seatbelt use: always Helmet use: No Drive intox or ride w/intox driver examiner: No Do you feel safe at home: Yes Do you feel safe in your relationship?: Yes Female Reproductive History Menstrual Age of Menarche: 12 Menopause type: natural Date of menopause: 10/17/07 History History 3 Para 2 Hx # Term Pregnancies Multiple births Hx # Pregnancies Ectopic pregnancies AB induced Hx Number of Living Children AB spontaneous 1 Exam GI Other: Umbilical incision with some clear serosanguinous drainage. No purulence noted. No appreciable abscess or collections. Minimal erythema at the incision site. Other incisions are well healed. Results Last Vital Signs Temp 98.2 F 03/17/19 11:09 Pulse 100 H 03/17/19 11:09 Resp 20 03/17/19 11:09 BP 165/68 H 03/17/19 11:09 Pulse Ox 98 03/17/19 11:09
--- NOTE | 2019-03-17 12:01 | GCONE_ITS ---
Date of service: 03/17/19 Assessment and Plan (1) Incisional infection: Current visit: No Status: Acute Likely this is an early and minor infection. I do not believe that any specific imaging is needed at this point. Will start her on Bactrim DS for one week and a new Rx for [place] is provided. She should still follow up with me at the end of the coming week as scheduled but should be seen sooner if things worsen. (2) RAKEL III (vulvar intraepithelial neoplasia III): Current visit: No Status: Acute I did review her pathology results with her today. My recommendation based on this diagnosis is for referral to [facility] at [facility] and we will facilitate that this week through the clinic. History of Present Illness Chief Complaint: Drainage from incision Narrative: 63 year old now approximately 10 days s/p laparoscopic bilateral salpingo oophorectomy for adnexal cysts. She was also found at the time of surgery to have vulvar lesions which were biopsied and returned RAKEL III. She developed some serous drainage from her umbilical incision 2 days ago. She denies fevers or chills. No significant erythema per patient. Bowel and bladder function have been normal. She does report continued pain at the umbilicus that does not seem to be improving. Consults Consult date: 03/17/19 Review of Systems Review of Systems All systems reviewed & are unremarkable except as noted in HPI and below PFSH Social History Smoking/Tobacco Use Status: Former Tobacco Use Quit Date: 12/15/16 Tobacco: How many years used: 20 Alcohol Intake: never Drug use: Never Substance use type: does not use Caregiver/Support person: No Household members: spouse Housing: house Communication Needs: None Pets and animals: Yes Pets and animals: dog(s) Sexually active: No Do you think of yourself as: straight/heterosexual Current gender identity: female What is your relationship status?: How often do you talk on the phone with friends or family?: once per week How often do you get together with friends or relatives?: three or more times per week How often do you attend worship or druze services?: decline to answer Do you belong to any clubs or organized social groups?: no Panel score (0-1 are the most socially isolated patients): 2 What type of physical activity do you participate in: none Hailee/Samaritan: [employer] Special hailee needs: No Seatbelt use: always Helmet use: No Drive intox or ride w/intox local hazmat driver: No Do you feel safe at home: Yes Do you feel safe in your relationship?: Yes Female Reproductive History Menstrual Age of Menarche: 12 Menopause type: natural Date of menopause: 10/17/07 History History 3 Para 2 Hx # Term Pregnancies Multiple births Hx # Pregnancies Ectopic pregnancies AB induced Hx Number of Living Children AB spontaneous 1 Exam GI Other: Umbilical incision with some clear serosanguinous drainage. No purulence noted. No appreciable abscess or collections. Minimal erythema at the incision site. Other incisions are well healed. Results Last Vital Signs Temp 98.2 F 03/17/19 11:09 Pulse 100 H 03/17/19 11:09 Resp 20 03/17/19 11:09 BP 165/68 H 03/17/19 11:09 Pulse Ox 98 03/17/19 11:09
== END 2019-03-17 11:54 | disposition home or self-care (01) ==
PROVIDERS: Emergency Provider Physician Assistant; PCP Family Medicine
DX: T81.49XA Infection following a procedure, other surgical site, initial encounter (principal); D07.1 Carcinoma in situ of vulva
CPT/HCPCS: 99253; 99283

== ENCOUNTER 2019-05-21 11:40 | Outpatient (CLI) | payer OTHER, SELFPAY ==
--- NOTE | 2019-05-21 11:15 | DI.US_ITS ---
SYMPTOMS/DIAGNOSIS: RT BREAST LUMP, N63.9 RIGHT BREAST ULTRASOUND: The patient notes a palpable lump in the upper outer quadrant. Comparison is made with mammogram from . There is a focal area of mildly increased echogenicity in the subcutaneous portion of the breast in the upper quadrant at the 10:00 o'clock position 5 cm from the nipple. It measures roughly 1.6 x 1.1 x 1.8 cm. There is a cystic area within it. The findings have the appearance of post traumatic fat necrosis. IMPRESSION: Palpable abnormality measuring 1.8 cm likely corresponds to an area of fat necrosis. The patient should return for a screening mammography in July of 2019.
== END 2019-05-21 12:00 ==
PROVIDERS: PCP Family Medicine; Visit Provider Obstetrics & Gynecology
DX: N63.11 Unspecified lump in the right breast, upper outer quadrant (principal); N64.1 Fat necrosis of breast
CPT/HCPCS: 76642

== ENCOUNTER 2019-07-17 00:46 | Outpatient (CLI) | payer OTHER, SELFPAY ==
--- NOTE | 2019-07-17 10:54 | DI.MAMMO_ITS ---
EXAM: MG MAMMO SCREENING CLINICAL HISTORY: screening. TECHNIQUE: Bilateral full field digital CC and MLO mammographic images were obtained with 3D tomosyn thesis and utilizing computer aided detection (CAD). COMPARISON: There are multiple priors with the most recent from 01/19/2019 FINDINGS: Masses/Architectural Distortion: None seen. There is an area of asymmetric breast tissue in the poste rior superior left breast seen on the mediolateral oblique view. This was not present on the prior e xamination. Spot compression view is requested for further evaluation ultrasound may be indicated at that time. Microcalcifications: No suspicious pleomorphic-type are seen. IMPRESSION: 1. Area of asymmetric breast tissue in the upper posterior left breast seen on the mediolateral obliq ue view. Spot compression view and ultrasound requested for further evaluation. BI-RADS Cat 0 - Assessment Incomplete: Need additional imaging evaluation Breast Density - Category B - Scattered areas of fibroglandular density A negative radiographic report should not delay biopsy if a dominant or clinically suspicious mass is present. Up to ten percent of cancers are not identified on mammography. A negative report may reinforce clinical impression. Adenosis and dense breasts may obscure an underlying neoplasm. False positive reports average 6 to 10%.
== END 2019-07-17 01:06 ==
PROVIDERS: PCP Family Medicine; Visit Provider Family Medicine
DX: Z12.31 Encounter for screening mammogram for malignant neoplasm of breast (principal); R92.8 Other abnormal and inconclusive findings on diagnostic imaging of breast
CPT/HCPCS: 77063; 77067

== ENCOUNTER 2019-07-17 09:40 | Outpatient (CLI) | payer OTHER, SELFPAY ==
[2019-07-17 10:12] LABS: Hemoglobin A1C 8.3 % (4.5-6.2)
[2019-07-17 10:33] LABS: COMMENT (LAB VIEW ONLY) 31.67 mg/dL; Microalb ug/mg Crea 22.7 ug/mg Cr
== END 2019-07-17 10:00 ==
PROVIDERS: PCP Family Medicine; Visit Provider Family Medicine
DX: E11.9 Type 2 diabetes mellitus without complications (principal)
CPT/HCPCS: 36415; 82043; 82570; 83036

== ENCOUNTER 2019-07-20 00:22 | Outpatient (CLI) | payer OTHER, SELFPAY ==
--- NOTE | 2019-07-20 14:32 | DI.MAMMO_ITS ---
EXAM: MG MAMMO SCREEN CALL BACK UNI AND US BREAST LT LIMITED CLINICAL HISTORY: F/U ABNORMAL MAMMO, ASYMMETRIC BREAST TISSUE SUPERIOR LT BREAST. TECHNIQUE: Additional images are interpreted according to the usual protocol including tomosynthesis and 2D imaging. Ultrasound was performed using standard protocol. COMPARISON: US breast RT complete from 05/21/2019 FINDINGS: Additional mammographic views of the left breast and left breast ultrasound are interpreted in conjun ction. These examinations were obtained to evaluate a questionable area of asymmetric density seen in the left breast on recent mammogram. Additional mammographic views fail show discrete mass. Breast u ltrasound shows no evidence of a mass or cyst. IMPRESSION: No specific evidence of malignancy at this time. Follow-up unilateral left breast mammogram recommend ed in 6 months. Category 3, breast density category B. BI-RADS Cat 3 - 6 month - Probably Benign Finding: Recommend follow-up mammography in 6 months Breast Density - Category B - Scattered areas of fibroglandular density EXAM: MG MAMMO SCREEN CALL BACK UNI CLINICAL HISTORY: ASYMMETRIC BREAST TISSUE SUPERIOR LT BREAST TECHNIQUE: Mammograms were interpreted according to the usual protocol including computer analysis w ith CAD system, tomosynthesis and C-view imaging. COMPARISON: FINDINGS: IMPRESSION:
--- NOTE | 2019-07-20 14:46 | DI.US_ITS ---
EXAM: MG MAMMO SCREEN CALL BACK UNI AND US BREAST LT LIMITED CLINICAL HISTORY: F/U ABNORMAL MAMMO, ASYMMETRIC BREAST TISSUE SUPERIOR LT BREAST. TECHNIQUE: Additional images are interpreted according to the usual protocol including tomosynthesis and 2D imaging. Ultrasound was performed using standard protocol. COMPARISON: US breast RT complete from 05/21/2019 FINDINGS: Additional mammographic views of the left breast and left breast ultrasound are interpreted in conjun ction. These examinations were obtained to evaluate a questionable area of asymmetric density seen i n the left breast on recent mammogram. Additional mammographic views fail show discrete mass. Breas t ultrasound shows no evidence of a mass or cyst. IMPRESSION: No specific evidence of malignancy at this time. Follow-up unilateral left breast mammogram recommend ed in 6 months. Category 3, breast density category B. BI-RADS Cat 3 - 6 month - Probably Benign Finding: Recommend follow-up mammography in 6 months Breast Density - Category B - Scattered areas of fibroglandular density
== END 2019-07-20 00:42 ==
PROVIDERS: PCP Family Medicine; Visit Provider Family Medicine
DX: Z12.31 Encounter for screening mammogram for malignant neoplasm of breast (principal); R92.8 Other abnormal and inconclusive findings on diagnostic imaging of breast; N64.59 Other signs and symptoms in breast
CPT/HCPCS: 76642; 77063; 77067

== ENCOUNTER 2020-02-15 19:39 | Emergency (ER) | payer OTHER, SELFPAY ==
[2020-02-15] VITALS (19 sets, daily range): BP systolic 138–182; BP diastolic 61–83; PULSE 76–116; RESP 11–20; TEMP 37; O2SAT 93–99
--- NOTE | 2020-02-15 20:13 | ED.GENADUL_ITS ---
Discharge Plan Disposition Patient Disposition: HOME Condition: Stable Discharge Details Chief Complaint: SOB Clinical Impression: Chest pain Primary Care Provider: Mateo Oneal ED Provider: Bismark Lo Home Meds and New Rx's Prescriptions: Continued (DME) blood sugar diagnostic [Blood Glucose Test] Strip 1 ea Miscellaneous TID Qty: 200 RF: 3 lisinopril 5 mg tablet 5 mg PO BID Qty: 180 RF: 3 metoprolol succinate 200 mg tablet extended release 24 hr 200 mg PO DAILY Qty: 90 RF: 3 (DME) pen needle, diabetic [Pen Needle] 31 gauge x 5/16 needle 1 ea Miscellaneous QID Qty: 400 RF: 3 furosemide [Lasix] 20 mg tablet 20 mg PO DAILY PRN (Reason: edema) Qty: 30 RF: 3 metformin 500 mg tablet 1,000 mg PO BID Qty: 360 RF: 3 Lantus Solostar U-100 Insulin 100 unit/mL (3 mL) insulin pen 70 unit Sub-Q HS Qty: 20 RF: 8 Humalog KwikPen Insulin 200 unit/mL (3 mL) insulin pen 25 - 35 unit subcut TID Qty: 15 RF: 11 pregabalin [Lyrica] 75 mg capsule 75 mg PO BID Qty: 60 RF: 5 Jardiance 25 mg tablet 25 mg PO QAM Qty: 90 RF: 3 aspirin [Aspir-81] 81 MG tablet,delayed release (DR/EC) 81 mg PO DAILY RF: 0 (DME) blood-glucose meter [OneTouch UltraMini] 1 EACH kit 1 ea Miscellaneous TID Qty: 1 RF: 0 rosuvastatin 40 mg tablet 40 mg PO QHS Qty: 90 RF: 3 lansoprazole [Prevacid] 30 mg capsule,delayed release(DR/EC) 30 mg PO DAILY Qty: 90 RF: 3 (DME) pen needle, diabetic [ReliOn Pen [place]] 32 gauge x 5/32 needle See Rx Instructions .ROUTE .MEDSUPPLY Qty: 400 RF: 3 bupropion HCl [Wellbutrin SR] 150 mg tablet sustained-release 12 hr 150 mg PO BID Qty: 60 RF: 11 nitroglycerin 0.4 mg tablet, sublingual 0.4 mg Sublingual q 5 min prn MDD 3 tabs Qty: 25 RF: 0 (DME) lancets [OneTouch UltraSoft Lancets] Misc See Rx Instructions .ROUTE .MEDSUPPLY Qty: 300 RF: 3 (DME) lancets [OneTouch Delica Plus Lancet] 33 gauge misc See Rx Instructions .ROUTE .MEDSUPPLY Qty: 300 RF: 3 sennosides-docusate sodium [Senexon-S] 8.6-50 mg tablet 1 tab PO DAILY RF: 0 magnesium 200 mg Tablet 200 mg PO DAILY RF: 0 Discharge Instructions Instructions: Chest Pain (ED) Additional Instructions: follow up as scheduled Tuesday for your cardiology appointment if you feel more ill, have worsening pain or difficulty breathing return to the emergency department Medical Decision Making <BIANCA Pan - Last Filed: 02/15/20 22:23> 64-year-old female with significant cardiac history presents with 7-day history of worsening shortness of breath, otherwise asymptomatic. She appears well, nontoxic, speaking in full sentences. She does appear to be slightly anxious. Of note her heart rate was slightly tachycardic however when you are to leave the room, her heart rate does drop into the 90s once again. Her O2 sats are 99% on room air. No fever, sick contact exposure, cough. Lower suspicion of COVID. Differential includes but not excluded to ACS, PE, CHF, pneumonia, viral s yndrome, etc. She did take a single aspirin today, will give 3 more aspirin now initiate cardiac work-up. Will include d-dimer given her tachycardia. White blood cell count of 12.48 hemoglobin 7.8 hematocrit 29.2, platelet 420 absolute neutrophils 9.12, d-dimer 914 sodium 135 potassium 4.5, creatinine 0.92, troponin less than 0.05. Given the elevated dimer will obtain a chest CTA. Discussed initial work-up with patient. CTA pending. Patient agreeable to be observed in ER for repeat 3-hour EKG and troponin. Assuming that the CTA is unremarkable and that the repeat troponin shows no evidence of trending upward, patient can likely be discharged home. She is quite comfortable this plan. Reports that she has outpatient cardiology telemedicine appointment on Tuesday. Medical Records Medical records reviewed: Yes I reviewed the patient's medical records. Imaging Data Radiologic Study: Attestation: I personally reviewed and interpreted this imaging study as follows: Imaging: X-Ray Radiologist's impression: Chest x-ray read as a new right infrahilar density could represent a vessel viewed on and, enlarged lymph node, or lung nodule, correlate with nonemergent CT of the chest per virtual radiology Lab Data Lab results reviewed: Yes I reviewed the patient's lab results. Lab results narrative: Laboratory Tests Range/Units 02/15/20 02/15/20 02/15/20 19:50 19:50 19:50 WBC (4.4-10.8) k/cumm 12.48 H RBC (4.00-5.20) m/cumm 4.80 Hgb (12.0-15.5) g/dL 7.8 L Hct (36.0-46.0) % 29.2 L MCV (80-95) fL 60.8 L MCH (27.0-33.0) pg 16.3 L MCHC (32.0-36.0) g/dL 26.7 L RDW (11.7-14.6) % 22.3 H Plt Count (130-400) x1000/uL 420 H MPV (8.0-11.0) fL 10.5 Immature Gran % % 0.2 Neutrophils % 73.1 Lymphocytes % 17.7 Monocytes % 6.0 Eosinophils % 2.6 Basophils % 0.4 Absolute Neutrophils (1.2-6.7) k/cumm 9.12 H Absolute Lymphocytes (1.2-3.4) k/cumm 2.21 Absolute Monocytes (0.11-0.7) k/cumm 0.75 H Absolute Eosinophils (0.0-0.7) k/cumm 0.32 Absolute Basophils (0.0-0.2) k/cumm 0.05 PT (9.3-11.0) sec 9.7 INR (0.9-1.1) 1.0 APTT (21.0-31.4) sec 21.4 D-Dimer (<500) ng/mlFEU 914 H Sodium (136-145) mmol/L 135 L Potassium (3.5-5.1) mmol/L 4.5 Chloride (98-107) mmol/L 100 Carbon Dioxide (21.0-32.0) mmol/L 22.4 Anion Gap (3-11) mmol/L 12.6 H BUN (7-18) mg/dL 15 Creatinine (0.55-1.02) mg/dL 0.92 Estimated GFR/1.73 m2 (mL/min/1.73m2) >= 60.00 Glucose (74-106) mg/dL 251 H Calcium (8.5-10.1) mg/dL 9.1 Magnesium (1.8-2.4) mg/dL 1.9 Total Bilirubin (0.2-1.0) mg/dL 0.2 AST (15-37) U/L 14 L ALT (14-59) U/L 19 Alkaline Phosphatase (46-116) U/L 100 Troponin I (<0.06) ng/Ml < 0.05 NT-Pro-B Natriuret Pep (<300) pg/mL 56 Total Protein (6.4-8.2) g/dL 7.9 Albumin (3.4-5.0) g/dL 3.9 ECG Data Attestation: I personally reviewed and interpreted this ECG (s) as follows: Prior ECG tracings: available for review Interpretation: EKG performed at 1946 reveals sinus tachycardia, ventricular rate of 104. No acute ST elevation or depression segments. Reviewed interpreted with Dr. Lo <Bismakr Lo MD - Last Filed: 02/15/20 23:51> Patient's second troponin negative and she remains pain free without complaints on my exam. I offered admission for observation but she declined. She understands importance of follow up with cardiology on Tuesday and return precautions also given. HPI <BIANCA Pan - Last Filed: 02/15/20 22:23> General Mode of arrival: ambulatory . Date/Time Provider Initiated Documentation: 02/15/20 19:50 . Limitations to Documentation: no limitations . Information obtained by: patient . HPI Narrative: This is a 64-year-old female with a past medical history of CAD, depression, diabetes, history of smoking, renal stone, [place], obesity, status post cardiac stent placement 3 years ago presenting for worsening shortness of breath x1 week. She reports that there may be a mild exertional component however not worse with lying flat. She reports that she does not use her nitro very frequently but did report chest pressure or discomfort roughly 1 month ago, took one nitro, pain resolved completely. Denies any chest pain or pressure over the past week to me. Denies any pain or swelling in her legs. She denies fever, cough, back pain. 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 Denies recent illness or trauma. Denies any recent travel or sick contacts Related Data Home Medications Medication Instructions Recorded Confirmed aspirin [Aspir-81] 81 mg PO DAILY tab-cap 01/04/17 02/15/20 blood-glucose meter [OneTouch #1 kit 03/07/18 01/15/20 UltraMini] magnesium 200 mg PO DAILY 03/07/19 02/15/20 rosuvastatin 40 mg tablet 40 mg PO QHS #90 tab 05/21/19 02/15/20 lansoprazole 30 mg capsule,delayed 30 mg PO DAILY #90 tab-cap 05/22/19 02/15/20 release empagliflozin 25 mg tablet 25 mg PO QAM #90 tab 07/31/19 02/15/20 insulin glargine 100 unit/mL (3 70 unit SUB-Q HS #20 ml 07/31/19 02/15/20 mL) subcutaneous pen insulin lispro 200 unit/mL (3 mL) 25 - 35 unit SUBCUT TID #15 pen 07/31/19 02/15/20 subcutaneous pen pregabalin 75 mg capsule 75 mg PO BID #60 cap 07/31/19 02/15/20 pen needle, diabetic 32 gauge x #400 each 08/03/19 01/15/20 5/32 bupropion HCl 150 mg tablet,12 hr 150 mg PO BID #60 tab-cap 12/17/19 02/15/20 sustained-release nitroglycerin 0.4 mg sublingual 0.4 mg SUBLINGUAL q 5 min prn #25 12/20/19 02/15/20 tablet tab-cap MDD 3 tabs lancets #300 each 12/21/19 01/15/20 lancets 33 gauge #300 each 12/21/19 01/15/20 blood sugar diagnostic #200 strip 01/15/20 01/15/20 furosemide 20 mg tablet 20 mg PO DAILY PRN #30 tab-cap 01/15/20 02/15/20 lisinopril 5 mg tablet 5 mg PO BID #180 tab-cap 01/15/20 02/15/20 metformin 500 mg tablet 1,000 mg PO BID #360 tab 01/15/20 02/15/20 metoprolol succinate 200 mg 200 mg PO DAILY #90 tab 01/15/20 02/15/20 tablet,extended release 24 hr pen needle, diabetic 31 gauge x #400 each 01/15/20 01/15/2003/01 sennosides-docusate sodium 1 tab PO DAILY 02/15/20 02/15/20 [Senexon-S] Previous Rx's Medication Instructions Recorded blood-glucose meter [OneTouch #1 kit 03/07/18 UltraMini] rosuvastatin 40 mg tablet 40 mg PO QHS #90 tab 05/21/19 lansoprazole 30 mg capsule,delayed 30 mg PO DAILY #90 tab-cap 05/22/19 release empagliflozin 25 mg tablet 25 mg PO QAM #90 tab 07/31/19 insulin glargine 100 unit/mL (3 70 unit SUB-Q HS #20 ml 07/31/19 mL) subcutaneous pen insulin lispro 200 unit/mL (3 mL) 25 - 35 unit SUBCUT TID #15 pen 07/31/19 subcutaneous pen pregabalin 75 mg capsule 75 mg PO BID #60 cap 07/31/19 pen needle, diabetic 32 gauge x #400 each 08/03/19 bupropion HCl 150 mg tablet,12 hr 150 mg PO BID #60 tab-cap 12/17/19 sustained-release nitroglycerin 0.4 mg sublingual 0.4 mg SUBLINGUAL q 5 min prn #25 12/20/19 tablet tab-cap MDD 3 tabs lancets #300 each 12/21/19 lancets 33 gauge #300 each 12/21/19 blood sugar diagnostic #200 strip 01/15/20 furosemide 20 mg tablet 20 mg PO DAILY PRN #30 tab-cap 01/15/20 lisinopril 5 mg tablet 5 mg PO BID #180 tab-cap 01/15/20 metformin 500 mg tablet 1,000 mg PO BID #360 tab 01/15/20 metoprolol succinate 200 mg 200 mg PO DAILY #90 tab 01/15/20 tablet,extended release 24 hr pen needle, diabetic 31 gauge x #400 each 01/15/2003/01 Allergies Allergy/AdvReac Type Severity Reaction Status Date / Time bacitracin Allergy Severe itching,bur Verified 02/15/20 19:50 mona power Penicillins Allergy Severe Anaphylaxsi Unverified 02/15/20 19:50 s General Stated Complaint: SOB CHRISSY: 2 Review of Systems <BIANCA Pan - Last Filed: 02/15/20 22:23> Constitutional Constitutional: Denies fatigue, Denies fever(s) and Denies weakness Eyes Eyes: Denies change in vision ENT Ears, Nose, Mouth, and Throat: Denies sore throat Cardiovascular Cardiovascular: Denies chest pain, Denies leg edema, Denies palpitations and Reports dyspnea Respiratory Respiratory: Denies cough, Reports dyspnea and Denies wheezing Gastrointestinal Gastrointestinal: Reports abdominal pain, Denies diarrhea, Denies nausea and Denies vomiting Genitourinary Genitourinary: Denies dysuria Musculoskeletal Musculoskeletal: Denies back pain, Denies myalgias, Denies numbness and Denies tingling Integumentary/Breasts Skin/Breast: Denies rash Neurologic Neurologic: Denies numbness, Denies tingling and Denies weakness Endocrine Endocrine: Denies fatigue and Denies palpitations Allergic/Immunologic Allergic/Immunologic: Denies wheezing PFSH <BIANCA Pan - Last Filed: 02/15/20 22:23> Medical History CAD (coronary artery disease) Depressive disorder (Acute) Diabetes History of tobacco abuse Kidney stone (Chronic) TX (myocardial infarction) 12/2016 Obesity Peptic reflux disease (Acute) Surgical History Bilateral salpingectomy with oophorectomy Cervical Conization/LEEP (~2001) Colonoscopy - MAC (08/02/17) History of uvulectomy (Acute ~07/02/19) [place] [facility] [place] [place] Family History Mother Hyperlipidemia Ovarian cancer Father , 85 Diabetes Essential hypertension Heart disease ASHD Depression Hyperlipidemia Brother Diabetes Essential hypertension Depression Heart disease Hyperlipidemia Cancer Maternal Grandfather , 76 Diabetes Alcohol abuse Cancer Paternal Grandfather , 78 Diabetes Essential hypertension Heart disease Hyperlipidemia Paternal Grandmother , 85 Essential hypertension Heart disease Depression Diabetes Hyperlipidemia Sister Cancer Maternal Aunt Personal history of malignant neoplasm Breast Sister Diabetes Heart disease Hyperlipidemia Stroke Sister Cancer Brother Essential hypertension Hyperlipidemia Stroke Brother No problems noted. Sister No problems noted. Son No problems noted. Daughter No problems noted. Social History Smoking/Tobacco Use Status: Former Tobacco Use Quit Date: 12/15/16 Tobacco: How many years used: 20 Quit status: considering quitting Alcohol Intake: never Drug use: Never Substance use type: does not use Caregiver/Support person: No Household members: spouse Housing: house Communication Needs: None Pets and animals: Yes Pets and animals: dog(s) Sexually active: No Do you think of yourself as: straight/heterosexual Current gender identity: female What is your relationship status?: How often do you talk on the phone with friends or family?: once per week How often do you get together with friends or relatives?: three or more times per week How often do you attend evangelical or christian services?: decline to answer Do you belong to any clubs or organized social groups?: no Panel score (0-1 are the most socially isolated patients): 2 What type of physical activity do you participate in: none Hailee/Buddhist: Quaker Special hailee needs: No Seatbelt use: always Helmet use: No Drive intox or ride w/intox delivery driver assistant: No Do you feel safe at home: Yes Do you feel safe in your relationship?: Yes Female Reproductive History Menstrual Age of Menarche: 12 Menopause type: natural Date of menopause: 10/17/07 History History 3 Para 2 Hx # Term Pregnancies Multiple births Hx # Pregnancies Ectopic pregnancies AB induced Hx Number of Living Children AB spontaneous 1 Exam <BIANCA Pan - Last Filed: 02/15/20 22:23> Const General: cooperative, healthy appearing, comfortable, no acute distress and anxious (Slightly) Orientation: alert, awake and oriented x3 HENMT Head: normal to inspection, normocephalic and atraumatic Mouth: moist mucous membranes Throat: posterior oropharynx normal Eyes Conjunctivae: conjunctivae normal Neck Neck: normal visual inspection, full ROM, trachea midline, supple and nontender Chest Chest: normal inspection of the chest and normal palpation of entire chest wall Resp Effort & Inspection: normal respiratory effort and able to speak in complete sentences Auscultation: clear to auscultation bilaterally Cardio Rate: tachycardic (104) Rhythm: regular rhythm GI Inspection: normal to inspection Palpation: soft, not firm, no guarding and nontender Auscultation: normal bowel sounds Back/Spine/Pelvis Back: No back tenderness Skin General skin exam: no rashes or lesions noted Neuro General: patient alert, patient awake, patient oriented x3, moves all extremities and no focal motor deficits Motor: muscle tone normal throughout Sensory Exam: no sensory deficits noted Extrem General: normal to inspection, full ROM, capillary refill normal, no pedal edema, no calf tenderness and normal gait Psych Appearance: grossly normal Mental Status: mental status grossly normal Course <BIANCA Pan - Last Filed: 02/15/20 22:23> Vital Signs Vital signs: Vital Signs Temperature 37 C 02/15/20 19:44 Pulse 107 H 02/15/20 19:44 Respiratory Rate 18 02/15/20 19:44 Blood Pressure 151/61 H 02/15/20 19:44 Pulse Oximetry 99 02/15/20 19:44 Temperature 37 C 02/15/20 19:44 Temperature Source Skin 02/15/20 19:44 Pulse 109 H 02/15/20 20:02 Respiratory Rate 13 02/15/20 20:02 Respiratory Effort 02/15/20 19:52 Respiratory Depth Deep 02/15/20 19:52 Respiratory Pattern Normal 02/15/20 19:52 Blood Pressure 153/76 H 02/15/20 20:02 Blood Pressure Position Supine 02/15/20 19:44 Pulse Oximetry 97 02/15/20 20:02 Oxygen Delivery Method Room Air 02/15/20 20:02 Oxygen Flow Rate 0 02/15/20 20:02 Pain Level 0 02/15/20 20:02 Sign Out <BIANCA Pan - Last Filed: 02/15/20 22:23> Sign Out Data: Sign Out Comment: Pending CTA, repeat troponin and EKG. Patient resting comfortably, O2 sats of 99% on room air. She appears well and in no acute distress. Assuming remainder of work-up is unremarkable patient to be discharged home, she has outpatient telemedicine cardiac appointment on Tuesday. Last updated by Sushant Jones PA at 02/15/20 22:24
[2020-02-15] MEDS: Normal Saline Flush 10 ML SYR IVP ×2 (20:22→21:58)
[2020-02-15] MEDS: Aspirin 81 MG CHEW 243 MG CH (20:22)
[2020-02-15 20:33] LABS: Abs Immature Grans 0.02 k/cumm (0.0-0.09); Absolute Basophil Count 0.05 k/cumm (0.0-0.2); Absolute Eosinophil Count 0.32 k/cumm (0.0-0.7); Absolute Lymphocyte Count 2.21 k/cumm (1.2-3.4); Absolute Monocyte Count 0.75 k/cumm (0.11-0.7); Absolute Neutrophil Count 9.12 k/cumm (1.2-6.7); Basophils % 0.4; Eosinophils % 2.6; HCT 29.2 % (36.0-46.0); HGB 7.8 g/dL (12.0-15.5); Immature Grans % 0.2 %; Lymphocytes % 17.7; Mean Corp. HGB Concentration 26.7 g/dL (32.0-36.0); Mean Corpuscular Hemoglobin 16.3 pg (27.0-33.0); Mean Corpuscular Volume 60.8 fL (80-95); Mean Platelet Volume 10.5 fL (8.0-11.0); Neutrophils % 73.1; Platelet Count 420 x1000/uL (130-400); RBC Distribution Width 22.3 % (11.7-14.6); White Blood Cell Count 12.48 k/cumm (4.4-10.8)
[2020-02-15 20:46] LABS: PTT Activated 21.4 sec (21.0-31.4); Prothrombin Time 9.7 sec (9.3-11.0)
--- NOTE | 2020-02-15 20:46 | DI.RAD_ITS ---
EXAM: XR CHEST 2V PA LATERAL CLINICAL HISTORY: SOB TECHNIQUE: 2D digital imaging was performed. COMPARISON: No exams were available for comparison FINDINGS: MEDIASTINUM: Normal. Mildly tortuous aorta. HEART: Normal. PULMONARY VASCULATURE: Normal. LUNGS: Clear. PLEURAL SPACE: No pleural effusion or pneumothorax. BONE:Normal. IMPRESSION: No acute pulmonary findings. DATA REPOSITORY: RADIATION DOSE DELIVERED:
--- NOTE | 2020-02-15 20:55 | DI.VRAD_ITS ---
PROCEDURE INFORMATION: Exam: XR Chest, 2 Views Exam date and time: 02/15/2020 8:43 PM Age: 64 years old Clinical indication: Shortness of breath TECHNIQUE: Imaging protocol: XR of the chest Views: 2 views. COMPARISON: SC PORTABLE CHEST ONE VIEW 05/03/2018 6:51 PM FINDINGS: Lungs: New, circumscribed right infrahilar density on PA view, measuring 2.2 cm. No consolidation. Pleural space: Unremarkable. No pleural effusion. No pneumothorax. Heart/Mediastinum: Unremarkable. No cardiomegaly. Bones/joints: Degenerative changes. IMPRESSION: New right infrahilar density could represent a vessel viewed on end, enlarged lymph node or lung nodule. Correlate with nonemergent CT of the chest. Dictated and Authenticated by: Blair Lou MD. Ordering:KENNETH Canchola MD
[2020-02-15 21:02] LABS: D-Dimer 914 ng/mlFEU (<500)
[2020-02-15 21:05] LABS: ALT 19 U/L (14-59); AST 14 U/L (15-37); Albumin 3.9 g/dL (3.4-5.0); Alkaline Phosphatase 100 U/L (46-116); Anion Gap 12.6 mmol/L (3-11); BUN 15 mg/dL (7-18); Bilirubin, Total 0.2 mg/dL (0.2-1.0); CO2 22.4 mmol/L (21.0-32.0); CREATININE 0.92 mg/dL (0.55-1.02); Calcium 9.1 mg/dL (8.5-10.1); Chloride 100 mmol/L (98-107); Glucose 251 mg/dL (74-106); Magnesium 1.9 mg/dL (1.8-2.4); NT-proBNP 56 pg/mL (<300); Potassium 4.5 mmol/L (3.5-5.1); Sodium 135 mmol/L (136-145); Total Protein 7.9 g/dL (6.4-8.2)
[2020-02-15 21:30] LABS: Troponin I < 0.05 ng/Ml (<0.06)
--- NOTE | 2020-02-15 21:51 | DI.CT_ITS ---
EXAM: CT CHEST PE CTA CLINICAL HISTORY: SOB, elevated d diimer. TECHNIQUE: Imaging Protocol: Axial CT angiography was performed with multi-slice acquisition and mu lti-planar and/or 3D reconstructions. CONTRAST MATERIAL: Intravenous: Omnipaque 350 Contrast volume:80 ml COMPARISON: CHEST FOR PULMONARY EMBOLUS from 05/03/2018 FINDINGS: Pulmonary Arteries: No evidence of filling defect to suggest pulmonary emboli. Tracheobronchial tree: Patent where visualized. Mediastinum and Meg: Small hilar and mediastinal lymph nodes are seen, similar to the previous exam. Pulmonary parenchyma: No consolidation or dominant measurable mass. Few scattered bulla or cysts are seen. Pleura: No effusion or pneumothorax. Heart: The heart is not dilated. coronary artery calcifications are seen. Aorta: Thoracic aorta non-dilated. No evidence of dissection. Upper abdomen: Unremarkable. Bones: Degenerative disc changes are seen in the thoracic spine. IMPRESSION: No evidence of pulmonary embolism or other acute abnormality. Stable mild hilar and mediastinal sabine opathy. RADIATION DOSE DELIVERED: Total DLP DATA REPOSITORY: All CT scans at this facility are submitted to the National Radiology Data Registry (NRDR) Dose Index Registry (DIR) with the [employer] (ACR). RADIATION OPTIMIZATION: All CT scans at this facility use at least one of these dose optimization te chniques: automated exposure control; mA and/or kV adjustment per patient size (includes targeted exa ms where dose is matched to clinical indication); or iterative reconstruction.
[2020-02-15] MEDS: Normal Saline - Diluent 50 ML VIAL IV (21:59)
[2020-02-15] MEDS: Omnipaque 350 MG/ML 100 ML BTL IJ (21:59)
--- NOTE | 2020-02-15 22:36 | DI.VRAD_ITS ---
PROCEDURE INFORMATION: Exam: CT Angiography Chest With Contrast Exam date and time: 02/15/2020 9:51 PM Age: 64 years old Clinical indication: Other: SOB elevated d-dimer TECHNIQUE: Imaging protocol: Computed tomographic angiography of the chest with intravenous contrast. 3D rendering: MIP and/or 3D reconstructed images were created by the technologist. Radiation optimization: All CT scans at this facility use at least one of these dose optimization techniques: automated exposure control; mA and/or kV adjustment per patient size (includes targeted exams where dose is matched to clinical indication); or iterative reconstruction. Contrast material: [id number]; Contrast volume: 80 ml; Contrast route: IV RAC 18G; COMPARISON: CT CHEST FOR PULMONARY EMBOLUS 05/03/2018 9:57 PM FINDINGS: Pulmonary arteries: Main pulmonary artery normal in caliber. No pulmonary artery filling defects. Aorta: Atherosclerosis. No aortic aneurysm. No aortic dissection. Lungs: There is minimal bibasilar atelectasis. Pleural space: Unremarkable. No pneumothorax. No pleural effusion. Heart: There are coronary artery calcifications. No pericardial effusion. Lymph nodes: Prominent mediastinal and bilateral hilar lymph nodes. There are calcified mediastinal nodes consistent with remote granulomatous disease. Liver: There is diffuse decrease in hepatic parenchymal density, consistent with mild fatty infiltration. Bones/joints: The spine demonstrates mild degenerative changes at multiple levels. No acute fracture. Soft tissues: Unremarkable. IMPRESSION: 1. No pulmonary artery embolism demonstrated. 2. Coronary artery disease. 3. Prominent mediastinal and hilar lymph nodes. 4. Hepatic steatosis. Dictated and Authenticated by: Blair Lou MD. Ordering:KENNETH Canchola MD
[2020-02-15 23:44] LABS: Troponin I < 0.05 ng/Ml (<0.06)
[2020-02-19 10:07] LABS: Ferritin 8 ng/mL (8-252)
[2020-02-20 09:52] LABS: Vitamin B12 233 pg/mL (211-911)
== END 2020-02-16 00:05 | disposition home or self-care (01) ==
PROVIDERS: Physician Assistant; Emergency Provider Emergency Medicine; PCP Family Medicine
DX: R07.9 Chest pain, unspecified (principal); R79.1 Abnormal coagulation profile; I25.10 Atherosclerotic heart disease of native coronary artery without angina pectoris; E11.9 Type 2 diabetes mellitus without complications; Z79.4 Long term (current) use of insulin; Z95.5 Presence of coronary angioplasty implant and graft; Z87.891 Personal history of nicotine dependence; D64.9 Anemia, unspecified
CPT/HCPCS: 36415; 71275; 80053; 93005; 99285; 71046; 82607; 82728; 83540; 83735; 83880; 84484; 85025; 85379; 85610; 85730; 93010; J3490

== ENCOUNTER → 2020-02-18 10:26 | Outpatient (BNVA) | payer OTHER, SELFPAY | PROVIDERS: PCP Family Medicine; Referring Provider Family Medicine; Visit Provider Internal Medicine Cardiovascular Disease | DX: I25.10 Atherosclerotic heart disease of native coronary artery without angina pectoris (principal); D64.9 Anemia, unspecified; E11.9 Type 2 diabetes mellitus without complications; Z79.4 Long term (current) use of insulin | CPT/HCPCS: 99442; 99213 ==

== ENCOUNTER 2020-02-21 08:47 | Outpatient (CLI) | payer OTHER, SELFPAY ==
[2020-02-21 17:51] LABS: Calculated LDL 86 mg/dL (<100); Cholesterol 168 mg/dL (<200); HDL Cholesterol 38 mg/dL (40-60); Triglyceride 222 mg/dL (<150)
[2020-02-21 19:55] LABS: Hemoglobin A1C 8.6 % (3.8-5.6)
[2020-02-26 08:55] LABS: Methylmalonic Acid 0.11 nmol/mL (<=0.40)
== END 2020-02-21 09:07 ==
PROVIDERS: PCP Family Medicine; Visit Provider Family Medicine
DX: E53.8 Deficiency of other specified B group vitamins (principal); E11.65 Type 2 diabetes mellitus with hyperglycemia; R73.9 Hyperglycemia, unspecified; E78.5 Hyperlipidemia, unspecified; Z51.81 Encounter for therapeutic drug level monitoring
CPT/HCPCS: 36415; 80061; 80186; 83090; 83036

== ENCOUNTER 2020-03-04 01:38 | Outpatient (CLI) | payer OTHER, SELFPAY ==
--- NOTE | 2020-03-04 09:05 | DI.MAMMO_ITS ---
EXAM: MG MAMMO DIAGNOSTIC UNI CLINICAL HISTORY: 6 MO F/U OF ABNORMAL MAMMO,R92.8. TECHNIQUE: Craniocaudal and mediolateral oblique Full Field Digital Mammography views of the left br east with Computer Aided Diagnosis followed by Tomosynthesis. COMPARISON: Priors available for comparison. FINDINGS: Mammography/Tomosynthesis: Masses/Architectural Distortion: None seen. Microcalcifictions: No suspicious pleomorphic-type are seen. Skin Thickening/Nipple Retraction: None. IMPRESSION: 1. No evidence of malignancy is noted. 2. Unless there is more urgent need, follow-up screening mammography is recommended, as per [employer] [place] [employer] guidelines. BI-RADS Category 1 - Negative Breast Density - Category B - Scattered areas of fibroglandular density The findings were discussed with the patient on the date of the examination. A negative radiographic report should not delay biopsy if a dominant or clinically suspicious mass is present. Up to ten percent of cancers are not identified on mammography. A negative report may reinforce clinical impression. Adenosis and dense breasts may obscure an underlying neoplasm. False positive reports average 6 to 10%. Patient will receive a letter notifying them of these results.
== END 2020-03-04 01:58 ==
PROVIDERS: PCP Family Medicine; Visit Provider Family Medicine
DX: Z13.21 Encounter for screening for nutritional disorder (principal); R92.8 Other abnormal and inconclusive findings on diagnostic imaging of breast; N64.59 Other signs and symptoms in breast
CPT/HCPCS: 77061; 77065; G0279

== ENCOUNTER 2020-03-12 01:12 | Outpatient (CLI) | payer OTHER, SELFPAY ==
--- NOTE | 2020-03-12 | DI.CT_ITS ---
EXAM: CT ABDOMEN PELVIS W CLINICAL HISTORY: ABD PAIN, BLOATING, FAMILY H/O OVARIAN CA,R10.30,Z80.41,R14.0. TECHNIQUE: Imaging Protocol: Axial computed tomography images with coronal and sagittal reformatted images were created and reviewed CONTRAST MATERIAL: Intravenous: Omnipaque 350 Contrast volume:100 cc Oral: yes COMPARISON: CT PELVIC/LOWER ABD WITH CON(P) from 12/05/2015 FINDINGS: ABDOMEN: Lung Bases: Normal where visualized. Liver: Normal density. No measurable mass. Gallbladder and biliary tract: No radiodense calculus or dilation. Pancreas: Normal density, no abnormal calcifications or inflammatory process. Spleen: Normal. Kidneys: Normal size, contour and axis. No radiodense stones or obstructive uropathy. No masses seen. Adrenal glands: No masses seen. Abdominal Aorta: Abdominal portion non-dilated. Mild calcification Small fatty containing umbilical hernia. PELVIS: Bladder: Symmetric distention, no gross wall thickening. Bowel: No obstruction or bowel wall thickening. Normal quantity of stool. Peritoneal cavity: No ascites, collection or mesenteric inflammatory response. Bones: Mild degenerative changes. Reproductive organs: Within normal limits. Lymph nodes: Unremarkable. Impression: Unremarkable CT scan of the abdomen and pelvis. RADIATION DOSE DELIVERED: 1,034.62mGy.cm Total DLP DATA REPOSITORY: All CT scans at this facility are submitted to the National Radiology Data Registry (NRDR) Dose Index Registry (DIR) with the [employer] ([employer]). RADIATION OPTIMIZATION: All CT scans at this facility use at least one of these dose optimization te chniques: automated exposure control; mA and/or kV adjustment per patient size (includes targeted exa ms where dose is matched to clinical indication); or iterative reconstruction.
[2020-03-12] MEDS: Omnipaque 350 MG/ML 100 ML BTL IJ (13:37)
[2020-03-12] MEDS: Omnipaque 350 MG/ML 50 ML BTL PO (13:38)
[2020-03-12] MEDS: Normal Saline - Diluent 50 ML VIAL IV (13:38)
== END 2020-03-12 01:32 ==
PROVIDERS: PCP Family Medicine; Visit Provider Obstetrics & Gynecology Gynecologic Oncology
DX: R10.30 Lower abdominal pain, unspecified (principal); R14.0 Abdominal distension (gaseous); Z80.41 Family history of malignant neoplasm of ovary; K42.9 Umbilical hernia without obstruction or gangrene
CPT/HCPCS: 74177; J3490; Q9967

== ENCOUNTER 2020-04-11 01:34 | Outpatient (CLI) | payer OTHER, SELFPAY ==
[2020-04-11 10:42] LABS: HCT 33.1 % (36.0-46.0); HGB 9.1 g/dL (12.0-15.5); Mean Corp. HGB Concentration 27.5 g/dL (32.0-36.0); Mean Corpuscular Hemoglobin 18.4 pg (27.0-33.0); Mean Platelet Volume 9.8 fL (8.0-11.0); RBC 4.94 m/cumm (4.00-5.20); RBC Distribution Width 25.7 % (11.7-14.6); White Blood Cell Count 9.79 k/cumm (4.4-10.8)
[2020-04-11 11:03] LABS: Platelet Count 426 x1000/uL (130-400)
== END 2020-04-11 01:54 ==
PROVIDERS: PCP Family Medicine; Visit Provider Family Medicine
DX: D64.9 Anemia, unspecified (principal)
CPT/HCPCS: 36415; 85027

== ENCOUNTER → 2020-08-25 09:22 | Outpatient (BNVA) | payer OTHER, SELFPAY | PROVIDERS: PCP Family Medicine; Referring Provider Family Medicine; Visit Provider Internal Medicine Cardiovascular Disease | DX: I25.10 Atherosclerotic heart disease of native coronary artery without angina pectoris (principal); R07.89 Other chest pain; E78.5 Hyperlipidemia, unspecified; E11.9 Type 2 diabetes mellitus without complications; Z95.818 Presence of other cardiac implants and grafts | CPT/HCPCS: 99214 ==

== ENCOUNTER 2020-09-02 00:23 | Outpatient (CLI) | payer OTHER, SELFPAY ==
--- NOTE | 2020-09-02 06:45 | DI.NM_ITS ---
APPROVED REPORT Exam: Pharmacologic Patient Location: Out-Patient Room/Bed: Stress Nurse: Philly Contreras RN BMI: 35.66 Baseline Rhythm: Sinus Bradycardia Indications: 5/10 sharp left sided chest pain occuring at rest, nonradiating, and relieved with nitro SL. No associated symptoms. Hx of CAD. Medical History Medical History: HTN. HLD. CAD. Depression. Diabetes. [place] 2017. Obesity. Peptic Reflux Disease. Cardiac Medications: Aspirin, Magnesium, Nitroglycerin SL, Furosemide PRN, Lisinopril, Metformin, Met oprolol Succinate, Lansoprazole, Rosuvastatin, Insulin Glargine, Insulin Lispro. Allergies: Penicillin, Bacitracin. Cardiac Risk Factors: FHX of CAD, HTN, Hyperlipidemia, Diabetes (insulin), CVD, Smoking (former). Previous Cardiac Procedures: PCI 2017, TY to RCA. Pretest Chest Pain Characteristics: No chest pain Exercise History: Sedentary Physical Disabilities: Hips Lung Sounds: Clear to auscultation Heart Sounds: Regular Stress Test Details Test: Exercise stress converted to pharmacologic stress due to failure to obtain a diagnostic stress test. Reason for pharmacologic stress test: changed from exercise stress test due to inability to reach t arget heart rate. Nuclear Acquisition: Rest Tc-99m/Stress Tc-99m 1 day Rest Isotope: Tc-99m Sestamibi. Dose: 12 Date: 09/02/2020 Injection Time: 0850 Stress Isotope: Tc-99m Sestamibi. Dose: 36.3 Date: 09/02/2020 Injection Time: 103 HR Resting HR Supine: 55 bpm Max Heart Rate (APMHR): 156.657924 bpm Resting HR Standin bpm Target HR (85% APMHR): 132.513381 bpm Max HR Achieved: 124 bpm % of APMHR: 79.49 Recovery HR: 84 bpm HR response to stress: Normal HR response to stress BP Resting BP Supine: 150/78 mmHg Resting BP Standin/74 mmHg Max BP: 166/68 mmHg Recovery BP: 142/74 mmHg BP response to stress: Normal blood pressure response to stress. ECG Resting ECG: Sinus Bradycardia Comment: inverted T wave lead III. Stress ECG: Sinus Tachycardia ST Change: No significant ST segement changes noted. Arrhythmia: None Comment: T wave upright in lead III during exercise. Recovery ECG: Sinus Rhythm Recovery ST Change: Horizontal ST depression Lead(s): II, aVF, V4 Recovery ST Deviation: 0.5 mm Recovery Arrhythmia: None Clinical Exercise duration: 03 min34 sec Highest Stage Reached: Stage 2: 2.5 mph at 12% grade. Exercise capacity: 5.52 METs Stress ECG Conclusion 1. Electrocardiogram was normal. The patient exercised on the Jacobo protocol and completed a workloa d of 5.52 METS 2. Normal heart rate and blood pressure response to exercise. Peak heart rate achieved was 78% of pr edicted 3. Electrocardiographically the test was nondiagnostic due to inadequate heart rate 4. There were no significant dysrhythmias Stress Test Summary STAGE Time (mins) Speed (mph) Grade (%) HR BP SYMPTOMS METS Supine 55 150/78 Standing 59 144 74 1 3 1.7 10 112 Dyspnea. 4.6 1 min post Lexiscan injection 105 166/68 Dyspnea. 3 min post Lexiscan injection 93 156/70 6 min post Lexiscan injection 84 142/74 MPI Conclusion Myocardial perfusion does not demonstrate significant ischemia. There appears to be apical thinning. No area of infarction Radiologist Interpretation Radiologist Interpretation by: Sebastian Ly MD Interpretation Date/Time: 09/02/2020 15:33:07
[2020-09-02] MEDS: Regadenoson 0.4 MG/5 ML SYR IVP (10:45)
== END 2020-09-02 00:43 ==
PROVIDERS: PCP Family Medicine; Visit Provider Internal Medicine Cardiovascular Disease
DX: R07.9 Chest pain, unspecified (principal); I10 Essential (primary) hypertension; E78.5 Hyperlipidemia, unspecified; E11.9 Type 2 diabetes mellitus without complications; Z82.49 Family history of ischemic heart disease and other diseases of the circulatory system; Z87.891 Personal history of nicotine dependence
CPT/HCPCS: 78452; 93016; 93018; 93017; J2785

== ENCOUNTER 2020-09-04 17:48 | Outpatient (REF) | payer OTHER, SELFPAY ==
--- NOTE | 2020-09-04 15:30 | PAPFT_PTH ---
PATIENT: Debbie Lezama LOC: [facility] U#:[id number] AGE/SX: 65/F ROOM: RE09/04/[address]: Juan Vazquez MD : [id number] BED: DIS: 09/04/2020 SPEC #: [id number] RECD: 09/04/20 18:07 STATUS: GISSEL REQ #: [id number] ASHLEE: 09/04/20 15:[address]: Juan Vazquez [facility]PT[facility] Cytology RECD BY: Lizette Roman ENTERED: 09/04/20 18:07 SP TYPE: PAPFT OTHR DR: Bobbi Bass MD Tissues: 1 - CX/ENDOCX FOR PAP SMEARS Procedures: PAP THIN PREP/[facility] Screening Comments: [id number] ([id number] [facility])
== END 2020-09-04 18:08 ==
LOC: LBN 17:48
PROVIDERS: PCP Family Medicine; Visit Provider Obstetrics & Gynecology
DX: Z12.4 Encounter for screening for malignant neoplasm of cervix (principal); Z86.001 Personal history of in-situ neoplasm of cervix uteri
CPT/HCPCS: 88142

== ENCOUNTER → 2020-09-05 10:05 | Outpatient (BNVA) | payer OTHER, SELFPAY | PROVIDERS: PCP Family Medicine; Referring Provider Family Medicine; Visit Provider Internal Medicine Cardiovascular Disease | DX: I25.10 Atherosclerotic heart disease of native coronary artery without angina pectoris (principal) | CPT/HCPCS: 99212; 99441 ==

== ENCOUNTER 2020-10-02 00:26 | Outpatient (CLI) | payer OTHER, SELFPAY ==
--- NOTE | 2020-10-02 12:30 | DI.MAMMO_ITS ---
EXAM: MG MAMMO SCREENING CLINICAL HISTORY: screening. TECHNIQUE: Bilateral full field digital CC and MLO mammographic images were obtained with 3D tomosyn thesis and utilizing computer aided detection (CAD). COMPARISON: Prior mammograms dating back to 2010, the most recent being July 2019 and diagnostic study February 2020.. Breast ultrasound July 2019 was reviewed. FINDINGS: There are no CAD designations. There are no spiculated masses nor malignant appearing microcalcification groups. Small density poste riorly in the lateral aspect of the right breast is unchanged from prior studies. There are no malign ant-appearing microcalcification groups in this region nor elsewhere in either breast. There is no si gnificant architectural distortion nor skin thickening-retraction. IMPRESSION: No radiographic evidence of malignancy. BI-RADS Category 1 - Negative Breast Density - Category B - Scattered areas of fibroglandular density Breast density Category C or D implies that the patient has dense breast tissue. Dense breast tissue can make it harder to find cancer on a mammogram. Dense breast tissue is also associated with an incr eased risk of breast cancer. This information about the result of the mammogram report was provided to the patient to raise their awareness. Use this report when you speak with the patient about their risks for breast cancer, which includes their family history. At that time, you may recommend additional screening tests (Ultrasoun d or MRI) as these tests may add significant information. A negative radiographic report should not delay biopsy if a dominant or clinically suspicious mass is present. Up to ten percent of cancers are not identified on mammography. A negative report may reinforce clinical impression. Adenosis and dense breasts may obscure an underlying neoplasm. False positive reports average 6 to 10%. Patient will receive a letter notifying them of these results.
== END 2020-10-02 00:46 ==
PROVIDERS: PCP Family Medicine; Visit Provider Obstetrics & Gynecology
DX: Z12.31 Encounter for screening mammogram for malignant neoplasm of breast (principal)
CPT/HCPCS: 77063; 77067

== ENCOUNTER 2021-01-27 03:48 | Outpatient (CLI) | payer OTHER, SELFPAY ==
[2021-01-27 10:04] LABS: HCT 39.3 % (36.0-46.0); HGB 11.9 g/dL (11.2-15.7); MCH 25.5 pg (27.0-33.0); MCHC 30.3 % (32.0-36.0); MCV 84.2 fL (80-95); MPV 10.8 fL (8.0-11.0); Platelet Count 290 10^3/uL (130-400); RBC 4.67 10^6/uL (3.93-5.22); RDW 17.3 % (11.7-14.6); RDW-SD 52.9 fL; WBC 8.06 10^3/uL (4.4-10.8)
[2021-01-27 10:16] LABS: Hemoglobin A1C 8.9 % (<5.7)
[2021-01-27 10:45] LABS: COMMENT (LAB VIEW ONLY) 48.43 mg/dL; Microalb ug/mg Crea 11.6 ug/mg Cr
[2021-01-27 11:02] LABS: ALT 25 U/L (14-59); AST 12 U/L (15-37); Albumin 3.8 g/dL (3.4-5.0); Alkaline Phosphatase 80 U/L (46-116); Anion Gap 9.7 mmol/L (3-11); BUN 19 mg/dL (7-18); Bilirubin, Total 0.1 mg/dL (0.2-1.0); CO2 27.3 mmol/L (21.0-32.0); CREATININE 0.8 mg/dL (0.55-1.02); Calcium 8.8 mg/dL (8.5-10.1); Calculated LDL 73 mg/dL (<100); Chloride 104 mmol/L (98-107); Cholesterol 156 mg/dL (<200); Ferritin 17 ng/mL (8-252); Glucose 191 mg/dL (74-106); HDL Cholesterol 38 mg/dL (40-60); Potassium 4.4 mmol/L (3.5-5.1); Sodium 141 mmol/L (136-145); Total Protein 7.1 g/dL (6.4-8.2); Triglyceride 225 mg/dL (<150)
== END 2021-01-27 03:49 | disposition home or self-care (01) ==
LOC: LBO 03:48
PROVIDERS: PCP Family Medicine; Visit Provider Family Medicine
DX: D64.9 Anemia, unspecified (principal); E11.9 Type 2 diabetes mellitus without complications
CPT/HCPCS: 36415; 80053; 80061; 85027; 82043; 82570; 82728; 83036

== ENCOUNTER → 2021-02-16 09:34 | Outpatient (BNVA) | payer OTHER, SELFPAY | PROVIDERS: PCP Family Medicine; Referring Provider Family Medicine; Visit Provider Internal Medicine Cardiovascular Disease | DX: I25.10 Atherosclerotic heart disease of native coronary artery without angina pectoris (principal); E78.5 Hyperlipidemia, unspecified | CPT/HCPCS: 99213 ==

== ENCOUNTER 2021-07-23 03:15 | Outpatient (CLI) | payer OTHER, SELFPAY ==
[2021-07-23 09:07] LABS: Hemoglobin A1C 10.5 % (<5.7)
[2021-07-23 10:19] LABS: Anion Gap 10.4 mmol/L (3-11); BUN 18 mg/dL (7-18); CO2 26.6 mmol/L (21.0-32.0); CREATININE 0.8 mg/dL (0.55-1.02); Calcium 9.2 mg/dL (8.5-10.1); Chloride 101 mmol/L (98-107); Glucose 203 mg/dL (74-106); Potassium 4.8 mmol/L (3.5-5.1); Sodium 138 mmol/L (136-145)
== END 2021-07-23 03:16 | disposition home or self-care (01) ==
PROVIDERS: PCP Family Medicine; Visit Provider Family Medicine
DX: E11.9 Type 2 diabetes mellitus without complications (principal)
CPT/HCPCS: 36415; 80048; 83036

== ENCOUNTER 2021-08-10 11:45 | Emergency (ER) | payer MEDICARE, SELFPAY ==
[2021-08-10] VITALS (7 sets, daily range): BP systolic 126–142; BP diastolic 47–68; PULSE 80–100; RESP 12–17; TEMP 36.3–36.6; O2SAT 95–97
--- NOTE | 2021-08-10 12:00 | RT.EKG_ITS ---
APPROVED REPORT Exam: Resting ECG Reason for Exam: chest pain Patient Location: E HR:98 bpm ECG Measurements Heart Rate 98 AXIS IL 144 P 33 QRSd 86 QRS -11 QT 337 T 8 QTc 429 Conclusion Sinus rhythm...normal P axis, V-rate 60- 99 Inferior infarct, old...Q >35mS, II III aVF no STEMI, non-diagnostic EKG
--- NOTE | 2021-08-10 12:16 | W.ED.GENAD ---
Discharge Plan Disposition Patient Disposition: HOME Condition: Stable Discharge Details Clinical Impression: COVID-19 Primary Care Provider: Rolando Blake ED Provider: Sushant Jones Home Meds and New Rx's Prescriptions: Continued cyanocobalamin (vitamin B-12) 2,500 mcg tablet 2,500 mcg PO DAILY RF: 0 ferrous sulfate 325 mg (65 mg iron) tablet 325 mg PO DAILY RF: 0 lisinopril 10 mg tablet 10 mg PO DAILY Qty: 90 RF: 4 metoprolol succinate 200 mg tablet extended release 24 hr 200 mg PO DAILY Qty: 90 RF: 3 pregabalin 150 mg capsule 150 mg PO BID Qty: 60 RF: 3 nitroglycerin 0.4 mg tablet, sublingual 0.4 mg Sublingual q 5 min prn MDD 3 tabs Qty: 25 RF: 0 Jardiance 25 mg tablet 25 mg PO QAM Qty: 90 RF: 3 aspirin [Aspir-81] 81 MG tablet,delayed release (DR/EC) 81 mg PO DAILY RF: 0 (DME) blood-glucose meter [SystemsNetuch UltraMini] 1 EACH kit 1 ea Miscellaneous TID Qty: 1 RF: 0 (DME) pen needle, diabetic [ReliOn Pen [place]] 32 gauge x 5/32 needle See Rx Instructions .ROUTE .MEDSUPPLY Qty: 400 RF: 3 (DME) lancets [OneTouch UltraSoft Lancets] Misc See Rx Instructions .ROUTE .MEDSUPPLY Qty: 300 RF: 3 metformin 500 mg tablet 1,000 mg PO BID Qty: 360 RF: 3 furosemide [Lasix] 20 mg tablet 20 mg PO DAILY PRN (Reason: edema) Qty: 30 RF: 3 bupropion HCl 150 mg tablet sustained-release 12 hr 150 - 300 mg PO .bid as directed Qty: 45 RF: 5 (DME) lancets [OneTouch Delica Plus Lancet] 33 gauge misc See Rx Instructions .ROUTE .MEDSUPPLY Qty: 300 RF: 3 (DME) pen needle, diabetic [Pen Needle] 31 gauge x 5/16 needle 1 ea Miscellaneous QID Qty: 400 RF: 3 (DME) Blood Glucose Test Strip 1 ea Miscellaneous TID Qty: 200 RF: 3 lansoprazole [Prevacid] 30 mg capsule,delayed release(DR/EC) 30 mg PO DAILY Qty: 90 RF: 3 Lantus Solostar U-100 Insulin 100 unit/mL (3 mL) insulin pen 70 unit Sub-Q HS Qty: 20 RF: 8 Humalog KwikPen Insulin 200 unit/mL (3 mL) insulin pen 25 - 35 unit subcut TID Qty: 15 RF: 6 rosuvastatin 40 mg tablet 40 mg PO QHS Qty: 90 RF: 3 magnesium 200 mg Tablet 200 mg PO DAILY RF: 0 Discharge Instructions Instructions: COVID-19 (Coronavirus Disease 2019) (ED) Additional Instructions: Your work-up today including blood work, CTA chest, are consistent with your known COVID-19 disease. You are not requiring any supplemental oxygen. After obtaining informed consent, we provided you with a monoclonal antibody infusion. You are being sent home with a pulse oximeter, be sure to monitor your oxygen levels and return to the ER for new or evolving symptoms, or oxygen levels that are consistently below 90%. Rest, plenty of fluids to avoid dehydration, [id number] medications as directed for symptomatic control please watch for new or worsening symptoms and return to the ER for any concerns. I have placed you on the care management list to help expedite outpatient primary care follow-up. I strongly recommend that you contact your primary care provider tomorrow to discuss your ER visit, ongoing symptoms, and need for outpatient reevaluation. Discharge Data Discharge Date/Time-TO BE ENTERED AT DEPARTURE: 08/10/21 18:58 Medical Decision Making This is a 66-year-old female, fully vaccinated, positive Covid, symptoms began within the last 10 days, with multiple comorbidities, presenting to the ER today for what she describes as body aches, intermittent chest pains with coughing, abdominal pain with coughing, shortness of breath, nausea, simply not feeling well. Clinically she appears well, nontoxic, speaking in full sentences, O2 sat 95% on room air, not requiring supplemental oxygen. Given her age, multiple comorbidities, presenting complaint today, will initiate a cardiac work-up including a Covid work-up and obtain a CTA of the chest to rule out PE as opposed to obtaining chest x-ray. Based upon her work-up, if she is not requiring admission, she may be a good candidate for monoclonal antibodies and will discuss this with her. Work-up reveals a white blood cell count of 4.02 hemoglobin 14.2 hematocrit 40.7, platelet count 230, absolute lymphocytes 1.12, D-dimer 923, lactate 0.9, sodium 133, potassium 4.7, anion gap 13.3, creatinine 0.9 with a GFR greater than 60. Patient is receiving 1 L IV fluid. Glucose 189, calcium 8.4 magnesium 2.1, ferritin 45, LFTs unremarkable. Lactate dehydrogenase 189, initial troponin is less than 0.05, CRP 1.18 BNP 14, procalcitonin less than 0.1 urinalysis yellow, clear, trace ketones, no evidence of infection. Laboratory values unremarkable for obvious emergent process, patient receiving 1 L of IV fluid. Awaiting CTA. Patient continues to speak in full sentences, not requiring supplemental oxygen. CTA negative for PE. Positive for bilateral infiltrates but given her known Covid test, no surprise there. Clinically she is afebrile, no elevated white count, speaking in full sentences, not required from his oxygen, O2 sats in the mid to high 90s on room air. I see no clear indication for emergent antibiotics. Had a long discussion regarding her presentation, work-up, and her overall health status. Patient does fall into the high risk category, does not require hospitalization, and therefore is a good candidate for monoclonal antibodies. We had a long discussion regarding the use of monoclonal antibodies, I answered all of the patient's questions to the best of my ability, and after this conversation using shared decision-making, patient is agreeable to moving forward with monoclonal antibodies, verbal consent obtained. Repeat troponin remains less than 0.05 I placed the order for the monoclonal antibody infusion protocol. Patient received the infusion, had no reaction, was observed for 60 minutes after the infusion and had no adverse reactions. Patient is requesting discharge at this time. Given her age, multiple comorbidities, patient is high risk, I did place her on the care management list to help expedite outpatient primary care follow-up. Strict discharge and return precautions were provided. Patient was provided a pulse oximeter upon discharge so she may check her oxygenation at home, instructed to return to the ER if her levels drop below 90. Patient has no additional questions or concerns. Patient continues to speak in full sentences, she remains afebrile, oxygen levels remain appropriate at 96% on room air. This documentation was generated using True Styleation system, please disregard any oddities of phrase or misspellings. Medical Records Medical records reviewed: Yes I reviewed the patient's medical records. Imaging Data Radiologic Study: Attestation: I personally reviewed and interpreted this imaging study as follows: Imaging: CT Scan Radiologist's impression: Exam(s) CT CHEST PE CTA EXAM: CT CHEST PE CTA CLINICAL HISTORY: COVID +, CP/SOB. TECHNIQUE: Imaging Protocol: CT angiography of the chest was performed using pulmonary embolus protocol. Multi planar reconstructions were performed. CONTRAST MATERIAL: Intravenous: Omnipaque 350 Contrast volume: 100 cc COMPARISON: CT CT ABDOMEN PELVIS W from 03/12/2020 FINDINGS: CHEST: PULMONARY ARTERIES: There are no intraluminal filling defects to suggest acute pulmonary emboli. LUNGS: There is confluent infiltrate in the superior and inferior lingular segments of the left lung. Also some infiltrate in the left lower lobe. No pleural effusion. In the opposite-right lung there is some milder infiltrate in the right lower lobe. Also no pleural effusion. No focal findings in the trachea and mainstem bronchi.. MEDIASTINUM: There is adenopathy in the right hilum. Milder adenopathy in the left hilum. There is subcarinal adenopathy. No adenopathy in the anterior mediastinal fat. No axillary adenopathy. No supraclavicular adenopathy. There is a nodule in the left thyroid lobe. CARDIAC: Heart size is upper normal. There is no pericardial effusion. There is moderate coronary artery calcification noted.Caliber of the thoracic aorta is within normal limits. There is no significant shift of the interventricular septum. PARTIALLY VISUALIZED UPPERMOST ABDOMEN: No adrenal masses. Hepatic steatosis. No splenomegaly. OSSEOUS: No significant osseous lesions.. IMPRESSION: 1. No evidence of acute pulmonary emboli. No evidence of pulmonary infarction.However, there are bilateral infiltrates, most prominent in the lingular segment of the left lung involving both inferior and superior lingular segments. Also some infiltrate in both lower lobes. No associated pleural effusions. 2. There is bilateral hilar and subcarinal adenopathy. Lab Data Lab results reviewed: Yes I reviewed the patient's lab results. Labs: Laboratory Tests Range/Units 08/10/21 08/10/21 08/10/21 12:15 12:15 12:50 WBC (4.4-10.8) 10^3/uL 4.02 L RBC (3.93-5.22) 10^6/uL 5.15 Hgb (11.2-15.7) g/dL 12.4 Hct (36.0-46.0) % 40.7 MCV (80-95) fL 79.0 L MCH (27.0-33.0) pg 24.1 L MCHC (32.0-36.0) % 30.5 L RDW (11.7-14.6) % 15.8 H Plt Count (130-400) 10^3/uL 230 MPV (8.0-11.0) fL 10.9 Immature Gran % 0.5 Neutrophils % 56.5 Lymphocytes % 27.9 Monocytes % 14.7 Eosinophils % 0.2 Basophils % 0.2 Nucleated RBC % % 0 Absolute Neutrophils (1.2-6.7) 10^3/uL 2.27 Absolute Lymphocytes (1.2-3.4) 10^3/uL 1.12 L Absolute Monocytes (0.1-0.8) 10^3/uL 0.59 Absolute Eosinophils (0.0-0.7) 10^3/uL 0.01 Absolute Basophils (0.0-0.2) 10^3/uL 0.01 D-Dimer (<500) ng/mlFEU VBG Lactate (0.6-1.4) mmol/L Sodium (136-145) mmol/L 133 L Potassium (3.5-5.1) mmol/L 4.7 Chloride (98-107) mmol/L 98 Carbon Dioxide (21.0-32.0) mmol/L 21.7 Anion Gap (3-11) mmol/L 13.3 H BUN (7-18) mg/dL 19 H Creatinine (0.55-1.02) mg/dL 0.9 Estimated GFR/1.73 m2 (mL/min/1.73m2) >= 60.00 Glucose (74-106) mg/dL 189 H Calcium (8.5-10.1) mg/dL 8.4 L Magnesium (1.8-2.4) mg/dL Ferritin (8-252) ng/mL 45 Total Bilirubin (0.2-1.0) mg/dL 0.2 AST (15-37) U/L 34 ALT (14-59) U/L 39 Alkaline Phosphatase (46-116) U/L 85 Lactate Dehydrogenase (81-234) U/L 189 Troponin I (<0.06) ng/mL < 0.05 C-Reactive Protein (0.0-0.3) mg/dL 1.18 H NT-Pro-B Natriuret Pep (<300) pg/mL Total Protein (6.4-8.2) g/dL 7.5 Albumin (3.4-5.0) g/dL 3.6 Procalcitonin ng/mL Urine Color (Yellow) Yellow Urine Clarity (Clear) Clear Urine pH (5-8) 5.5 Ur Specific [place] (1.005-1.025) 1.015 Urine Protein (Negative) mg/dL Negative Urine Ketones (Negative) mg/dL Trace H Urine Blood (Negative) Negative Urine Nitrite (Negative) Negative Urine Bilirubin (Negative) Negative Urine Urobilinogen (Up TO 0.2) EU/dL 0.2 Ur Leukocyte Esterase (Negative) Negative Urine Glucose (Negative) mg/dL 500 H Range/Units 08/10/21 08/10/21 08/10/21 12:56 12:56 12:56 WBC (4.4-10.8) 10^3/uL RBC (3.93-5.22) 10^6/uL Hgb (11.2-15.7) g/dL Hct (36.0-46.0) % MCV (80-95) fL MCH (27.0-33.0) pg MCHC (32.0-36.0) % RDW (11.7-14.6) % Plt Count (130-400) 10^3/uL MPV (8.0-11.0) fL Immature Gran % Neutrophils % Lymphocytes % Monocytes % Eosinophils % Basophils % Nucleated RBC % % Absolute Neutrophils (1.2-6.7) 10^3/uL Absolute Lymphocytes (1.2-3.4) 10^3/uL Absolute Monocytes (0.1-0.8) 10^3/uL Absolute Eosinophils (0.0-0.7) 10^3/uL Absolute Basophils (0.0-0.2) 10^3/uL D-Dimer (<500) ng/mlFEU 923 H VBG Lactate (0.6-1.4) mmol/L 0.9 Sodium (136-145) mmol/L Potassium (3.5-5.1) mmol/L Chloride (98-107) mmol/L Carbon Dioxide (21.0-32.0) mmol/L Anion Gap (3-11) mmol/L BUN (7-18) mg/dL Creatinine (0.55-1.02) mg/dL Estimated GFR/1.73 m2 (mL/min/1.73m2) Glucose (74-106) mg/dL Calcium (8.5-10.1) mg/dL Magnesium (1.8-2.4) mg/dL 2.1 Ferritin (8-252) ng/mL Total Bilirubin (0.2-1.0) mg/dL AST (15-37) U/L ALT (14-59) U/L Alkaline Phosphatase (46-116) U/L Lactate Dehydrogenase (81-234) U/L Troponin I (<0.06) ng/mL C-Reactive Protein (0.0-0.3) mg/dL NT-Pro-B Natriuret Pep (<300) pg/mL 14 Total Protein (6.4-8.2) g/dL Albumin (3.4-5.0) g/dL Procalcitonin ng/mL < 0.1 Urine Color (Yellow) Urine Clarity (Clear) Urine pH (5-8) Ur Specific [place] (1.005-1.025) Urine Protein (Negative) mg/dL Urine Ketones (Negative) mg/dL Urine Blood (Negative) Urine Nitrite (Negative) Urine Bilirubin (Negative) Urine Urobilinogen (Up TO 0.2) EU/dL Ur Leukocyte Esterase (Negative) Urine Glucose (Negative) mg/dL Range/Units 08/10/21 18:07 WBC (4.4-10.8) 10^3/uL RBC (3.93-5.22) 10^6/uL Hgb (11.2-15.7) g/dL Hct (36.0-46.0) % MCV (80-95) fL MCH (27.0-33.0) pg MCHC (32.0-36.0) % RDW (11.7-14.6) % Plt Count (130-400) 10^3/uL MPV (8.0-11.0) fL Immature Gran % Neutrophils % Lymphocytes % Monocytes % Eosinophils % Basophils % Nucleated RBC % % Absolute Neutrophils (1.2-6.7) 10^3/uL Absolute Lymphocytes (1.2-3.4) 10^3/uL Absolute Monocytes (0.1-0.8) 10^3/uL Absolute Eosinophils (0.0-0.7) 10^3/uL Absolute Basophils (0.0-0.2) 10^3/uL D-Dimer (<500) ng/mlFEU VBG Lactate (0.6-1.4) mmol/L Sodium (136-145) mmol/L Potassium (3.5-5.1) mmol/L Chloride (98-107) mmol/L Carbon Dioxide (21.0-32.0) mmol/L Anion Gap (3-11) mmol/L BUN (7-18) mg/dL Creatinine (0.55-1.02) mg/dL Estimated GFR/1.73 m2 (mL/min/1.73m2) Glucose (74-106) mg/dL Calcium (8.5-10.1) mg/dL Magnesium (1.8-2.4) mg/dL Ferritin (8-252) ng/mL Total Bilirubin (0.2-1.0) mg/dL AST (15-37) U/L ALT (14-59) U/L Alkaline Phosphatase (46-116) U/L Lactate Dehydrogenase (81-234) U/L Troponin I (<0.06) ng/mL < 0.05 C-Reactive Protein (0.0-0.3) mg/dL NT-Pro-B Natriuret Pep (<300) pg/mL Total Protein (6.4-8.2) g/dL Albumin (3.4-5.0) g/dL Procalcitonin ng/mL Urine Color (Yellow) Urine Clarity (Clear) Urine pH (5-8) Ur Specific [place] (1.005-1.025) Urine Protein (Negative) mg/dL Urine Ketones (Negative) mg/dL Urine Blood (Negative) Urine Nitrite (Negative) Urine Bilirubin (Negative) Urine Urobilinogen (Up TO 0.2) EU/dL Ur Leukocyte Esterase (Negative) Urine Glucose (Negative) mg/dL ECG Data Attestation: I personally reviewed and interpreted this ECG (s) as follows: Interpretation: Please see official report by Dr. Bunch. Sinus rhythm, ventricular rate of 98, no STEMI. HPI General Mode of arrival: ambulatory. Date/Time Provider Initiated Documentation: 08/10/21 12:12. Limitations to Documentation: no limitations. Information obtained by: patient. HPI Narrative: This is a 66-year-old female with a past medical history of diabetes, anemia, CAD, depression, obesity with a BMI 37.2, GERD, STEMI, former smoker, presenting to the ER stating that she was diagnosed with Covid on , now having a dry cough, nasal congestion, shortness of breath, intermittent left-sided chest pain and abdominal cramping. Patient has been fully vaccinated. She states that stuffy nose and dry cough began 6 days ago, subsequently tested Covid 2 days later, and then called on Tuesday with a positive test. She denies headache, fever, neck pain, back pain, vomiting, dysuria, pain or swelling in her legs. She reports body aches, stuffy nose, dry cough, shortness of breath nausea, diarrhea, abdominal cramping, left-sided chest pain worse with coughing or taking a deep breath. Patient states that she has a history of NC no diabetes chest pain has been very concerned. She is not anticoagulated, no history of PE or DVT. She has been taking her regular medications as directed has not taken any [id number] or symptomatic control. She has not had any antibiotic infusions. Related Data Home Medications Medication Instructions Recorded Confirmed aspirin [Aspir-81] 81 mg PO DAILY tab-cap 01/04/17 08/12/21 blood-glucose meter [OneTouch #1 kit 03/07/18 08/12/21 UltraMini] magnesium 200 mg PO DAILY 03/07/19 08/12/21 pen needle, diabetic 32 gauge x #400 each 08/03/19 08/12/21 5/32 lancets #300 each 12/21/19 08/12/21 cyanocobalamin (vitamin B-12) 2,500 mcg PO DAILY 09/04/20 08/12/21 2,500 mcg tablet ferrous sulfate 325 mg (65 mg 325 mg PO DAILY 09/04/20 08/12/21 iron) tablet furosemide 20 mg tablet 20 mg PO DAILY PRN #30 tab-cap 01/15/21 08/12/21 metformin 500 mg tablet 1,000 mg PO BID #360 tab 01/15/21 08/12/21 bupropion HCl 150 mg tablet,12 hr 150 - 300 mg PO .bid as directed 02/04/21 08/12/21 sustained-release #45 tab lancets 33 gauge #300 each 02/11/21 08/12/21 pen needle, diabetic 31 gauge x #400 each 03/02/21 08/12/2103/01 blood sugar diagnostic #200 strip 03/12/21 08/12/21 lansoprazole 30 mg capsule,delayed 30 mg PO DAILY #90 tab-cap 04/02/21 08/12/21 release insulin glargine 100 unit/mL (3 70 unit SUB-Q HS #20 ml 04/07/21 08/12/21 mL) subcutaneous pen lisinopril 10 mg tablet 10 mg PO DAILY #90 tab 04/29/21 08/12/21 metoprolol succinate 200 mg 200 mg PO DAILY #90 tab 04/29/21 08/12/21 tablet,extended release 24 hr insulin lispro 200 unit/mL (3 mL) 25 - 35 unit SUBCUT TID #15 pen 06/23/21 08/12/21 subcutaneous pen rosuvastatin 40 mg tablet 40 mg PO QHS #90 tab 07/06/21 08/12/21 empagliflozin 25 mg tablet 25 mg PO QAM #90 tab 07/29/21 08/12/21 nitroglycerin 0.4 mg sublingual 0.4 mg SUBLINGUAL q 5 min prn #25 07/29/21 08/12/21 tablet tab-cap MDD 3 tabs pregabalin 150 mg capsule 150 mg PO BID #60 cap 07/29/21 08/12/21 Previous Rx's Medication Instructions Recorded blood-glucose meter [OneTouch #1 kit 03/07/18 UltraMini] pen needle, diabetic 32 gauge x #400 each 08/03/19 lancets #300 each 12/21/19 furosemide 20 mg tablet 20 mg PO DAILY PRN #30 tab-cap 01/15/21 metformin 500 mg tablet 1,000 mg PO BID #360 tab 01/15/21 bupropion HCl 150 mg tablet,12 hr 150 - 300 mg PO .bid as directed 02/04/21 sustained-release #45 tab lancets 33 gauge #300 each 02/11/21 pen needle, diabetic 31 gauge x #400 each 03/02/21/16 blood sugar diagnostic #200 strip 03/12/21 lansoprazole 30 mg capsule,delayed 30 mg PO DAILY #90 tab-cap 04/02/21 release insulin glargine 100 unit/mL (3 70 unit SUB-Q HS #20 ml 04/07/21 mL) subcutaneous pen lisinopril 10 mg tablet 10 mg PO DAILY #90 tab 04/29/21 metoprolol succinate 200 mg 200 mg PO DAILY #90 tab 04/29/21 tablet,extended release 24 hr insulin lispro 200 unit/mL (3 mL) 25 - 35 unit SUBCUT TID #15 pen 06/23/21 subcutaneous pen rosuvastatin 40 mg tablet 40 mg PO QHS #90 tab 07/06/21 empagliflozin 25 mg tablet 25 mg PO QAM #90 tab 07/29/21 nitroglycerin 0.4 mg sublingual 0.4 mg SUBLINGUAL q 5 min prn #25 07/29/21 tablet tab-cap MDD 3 tabs pregabalin 150 mg capsule 150 mg PO BID #60 cap 07/29/21 Allergies Allergy/AdvReac Type Severity Reaction Status Date / Time bacitracin Allergy Severe itching,bur Verified 08/10/21 12:07 mona power Penicillins Allergy Severe Anaphylaxsi Verified 08/10/21 12:07 s General Stated Complaint: Chest Pain CHRISSY: 2 Review of Systems Constitutional Constitutional: Reports fatigue, Denies fever(s) and Denies headache(s) ENT Ears, Nose, Mouth, and Throat: Denies headache(s) and Denies neck pain Cardiovascular Cardiovascular: Reports chest pain and Reports dyspnea Respiratory Respiratory: Reports cough and Reports dyspnea Gastrointestinal Gastrointestinal: Reports abdominal pain, Reports diarrhea, Reports nausea and Denies vomiting Genitourinary Genitourinary: Denies dysuria Musculoskeletal Musculoskeletal: Reports myalgias and Denies neck pain Integumentary/Breasts Skin/Breast: Denies rash Neurologic Neurologic: Denies headache(s) Endocrine Endocrine: Reports fatigue Hematologic/Lymphatic Hematologic/Lymphatic: Denies easy bleeding and Denies easy bruising [facility] Medical History CAD (coronary artery disease) : negative nuclear stress test for atypical CP Depressive disorder Diabetes History of tobacco abuse Kidney stone NC (myocardial infarction) 12/2016 Obesity Papanicolaou smear of vagina with low grade squamous intraepithelial lesion (LGSIL) (09/15/01) Peptic reflux disease Plantar fasciitis disability secondary to dx Surgical History Bilateral salpingectomy with oophorectomy Cervical Conization/LEEP (~2001) Colonoscopy - MAC (08/02/17) History of uvulectomy (~07/02/19) 07/02/19 [facility] [place]; SIMPLE PARTIAL-kb Stent placement 12/21/16-[facility] [place] DISTAL RCA (TY) Family History Mother Hyperlipidemia Ovarian cancer Father , 85 Diabetes Essential hypertension Heart disease ASHD Depression Hyperlipidemia Brother Diabetes Essential hypertension Depression Heart disease Hyperlipidemia Cancer Maternal Grandfather , 76 Diabetes Alcohol abuse Cancer Paternal Grandfather , 78 Diabetes Essential hypertension Heart disease Hyperlipidemia Paternal Grandmother , 85 Essential hypertension Heart disease Depression Diabetes Hyperlipidemia Sister Cancer Maternal Aunt Personal history of malignant neoplasm Breast Sister Diabetes Heart disease Hyperlipidemia Stroke Sister Cancer Brother Essential hypertension Hyperlipidemia Stroke Brother No problems noted. Sister No problems noted. Son No problems noted. Daughter No problems noted. Social History Smoking/Tobacco Use Status: Former Tobacco Use tobacco type: cigarettes Quit Date: 12/15/16 Tobacco: How many years used: 20 Smoking risk assessment performed?: Yes Alcohol Intake: never Drug use: Never Substance use type: does not use Caregiver/Support person: No Household members: spouse Housing: house Communication Needs: None Do you need help understanding health information?: Rarely Pets and animals: Yes Pets and animals: dog(s) Sexually active: No Do you think of yourself as: straight/heterosexual Current gender identity: female What is your relationship status?: How often do you talk on the phone with friends or family?: three or more times per week How often do you get together with friends or relatives?: once per week How often do you attend christian or advent services?: decline to answer Do you belong to any clubs or organized social groups?: no Panel score (0-1 are the most socially isolated patients): 2 What type of physical activity do you participate in: none Hailee/Religious: No preference Special hailee needs: No Seatbelt use: always Helmet use: No 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 Do you feel safe at home: Yes Do you feel safe in your relationship?: Yes Female Reproductive History Menstrual Age of Menarche: 12 Menopause type: natural Date of menopause: 10/17/07 History History 3 Para 2 Hx # Term Pregnancies Multiple births Hx # Pregnancies Ectopic pregnancies AB induced Hx Number of Living Children AB spontaneous 1 Exam Const General: cooperative, healthy appearing, comfortable and no acute distress Orientation: alert, awake and oriented x3 HENMT Head: normal to inspection, normocephalic and atraumatic Face and sinus: normal facial exam Mouth: moist mucous membranes abnormal (Minimally dry) Throat: posterior oropharynx normal Eyes General: appearance normal, both eyes and all related structures Conjunctivae: conjunctivae normal Neck Neck: normal visual inspection, full ROM, no lymphadenopathy, no meningeal signs, trachea midline, supple and nontender Resp Effort & Inspection: normal respiratory effort, able to speak in complete sentences and cough Quality of cough: dry (mild) Auscultation: diminished lung sounds bilaterally in the lower lung mar (mild) Cardio Rate: regular rate Rhythm: regular rhythm GI Inspection: obesity Palpation: soft, not firm, no guarding, no pulsatile masses and nontender Auscultation: normal bowel sounds Back/Spine/Pelvis Back: No back tenderness Skin General skin exam: no rashes or lesions noted Neuro General: patient alert, patient awake, patient oriented x3, moves all extremities and no focal motor deficits Cognition: normal cognition Speech: speech normal Gait: normal gait Motor: muscle tone normal throughout Sensory Exam: no sensory deficits noted Extrem General: normal to inspection, full ROM, capillary refill normal, no pedal edema and no calf tenderness Psych Appearance: grossly normal Mental Status: mental status grossly normal Course Vital Signs Vital signs: Vital Signs Temperature 36.3 C L 08/10/21 12:03 Pulse 100 H 08/10/21 12:03 Respiratory Rate 17 08/10/21 12:03 Blood Pressure 140/68 08/10/21 12:03 Pulse Oximetry 95 08/10/21 12:03 Temperature 36.3 C L 08/10/21 12:03 Temperature Source Skin 08/10/21 12:03 Pulse 100 H 08/10/21 12:03 Respiratory Rate 17 08/10/21 12:03 Respiratory Effort Non-Labored 08/10/21 12:03 Blood Pressure 140/68 08/10/21 12:03 Blood Pressure Position Supine 08/10/21 12:03 Pulse Oximetry 95 08/10/21 12:03 Oxygen Delivery Method Room Air 08/10/21 12:03 Oxygen Flow Rate 0 08/10/21 12:03 Pain Level 6 08/10/21 12:03
--- NOTE | 2021-08-10 12:30 | DI.CT_ITS ---
Exam(s) CT CHEST PE CTA EXAM: CT CHEST PE CTA CLINICAL HISTORY: COVID +, CP/SOB. TECHNIQUE: Imaging Protocol: CT angiography of the chest was performed using pulmonary embolus cathryn col. Multi planar reconstructions were performed. CONTRAST MATERIAL: Intravenous: Omnipaque 350 Contrast volume: 100 cc COMPARISON: CT CT ABDOMEN PELVIS W from 03/12/2020 FINDINGS: CHEST: PULMONARY ARTERIES: There are no intraluminal filling defects to suggest acute pulmonary emboli. LUNGS: There is confluent infiltrate in the superior and inferior lingular segments of the left lung. Also some infiltrate in the left lower lobe. No pleural effusion. In the opposite-right lung ther e is some milder infiltrate in the right lower lobe. Also no pleural effusion. No focal findings in the trachea and mainstem bronchi.. MEDIASTINUM: There is adenopathy in the right hilum. Milder adenopathy in the left hilum. There is subcarinal adenopathy. No adenopathy in the anterior mediastinal fat. No axillary adenopathy. No s upraclavicular adenopathy. There is a nodule in the left thyroid lobe. CARDIAC: Heart size is upper normal. There is no pericardial effusion. There is moderate coronary a rtery calcification noted.Caliber of the thoracic aorta is within normal limits. There is no signifi cant shift of the interventricular septum. PARTIALLY VISUALIZED UPPERMOST ABDOMEN: No adrenal masses. Hepatic steatosis. No splenomegaly. OSSEOUS: No significant osseous lesions.. IMPRESSION: 1. No evidence of acute pulmonary emboli. No evidence of pulmonary infarction.However, there are olga ateral infiltrates, most prominent in the lingular segment of the left lung involving both inferior a nd superior lingular segments. Also some infiltrate in both lower lobes. No associated pleural effu sions. 2. There is bilateral hilar and subcarinal adenopathy. RADIATION DOSE DELIVERED: 628.18mGy.cm Total DLP DATA REPOSITORY: All CT scans at this facility are submitted to the National Radiology Data Registry (NRDR) Dose Index Registry (DIR) with the [employer] (ACR). RADIATION OPTIMIZATION: All CT scans at this facility use at least one of these dose optimization te chniques: automated exposure control; mA and/or kV adjustment per patient size (includes targeted exa ms where dose is matched to clinical indication); or iterative reconstruction.
[2021-08-10 12:47] LABS: Abs Immature Grans 0.02 10^3/uL (0.0-0.06); Absolute Basophil Count 0.01 10^3/uL (0.0-0.2); Absolute Eosinophil Count 0.01 10^3/uL (0.0-0.7); Absolute Lymphocyte Count 1.12 10^3/uL (1.2-3.4); Absolute Monocyte Count 0.59 10^3/uL (0.1-0.8); Absolute Neutrophil Count 2.27 10^3/uL (1.2-6.7); Basophils % 0.2; Eosinophils % 0.2; HCT 40.7 % (36.0-46.0); HGB 12.4 g/dL (11.2-15.7); Immature Grans % 0.5; Lymphocytes % 27.9; MCH 24.1 pg (27.0-33.0); MCHC 30.5 % (32.0-36.0); MPV 10.9 fL (8.0-11.0); Monocytes % 14.7; Neutrophils % 56.5; Nucleated RBC 0 %; Platelet Count 230 10^3/uL (130-400); RBC 5.15 10^6/uL (3.93-5.22); RDW 15.8 % (11.7-14.6); WBC 4.02 10^3/uL (4.4-10.8)
[2021-08-10] MEDS: Lactated Ringers 1,000 ML 1000 ML IV (12:52)
[2021-08-10 13:03] LABS: ALT 39 U/L (14-59); AST 34 U/L (15-37); Albumin 3.6 g/dL (3.4-5.0); Alkaline Phosphatase 85 U/L (46-116); Anion Gap 13.3 mmol/L (3-11); BUN 19 mg/dL (7-18); Bilirubin, Total 0.2 mg/dL (0.2-1.0); C-Reactive Protein 1.18 mg/dL (0.0-0.3); CO2 21.7 mmol/L (21.0-32.0); CREATININE 0.9 mg/dL (0.55-1.02); Calcium 8.4 mg/dL (8.5-10.1); Chloride 98 mmol/L (98-107); Glucose 189 mg/dL (74-106); LDH 189 U/L (81-234); Potassium 4.7 mmol/L (3.5-5.1); Sodium 133 mmol/L (136-145); Total Protein 7.5 g/dL (6.4-8.2)
[2021-08-10 13:03] LABS: Bilirubin Negative (Negative); Blood Negative (Negative); Clarity Clear (Clear); Glucose 500 mg/dL (Negative); Ketones Trace mg/dL (Negative); Leukocyte Esterase Negative (Negative); Nitrite Negative (Negative); Specific Gravity 1.015 (1.005-1.025); Urobilinogen 0.2 EU/dL (Up TO 0.2); pH 5.5 (5-8)
[2021-08-10 13:03] LABS: Lactate 0.9 mmol/L (0.6-1.4)
[2021-08-10 13:09] LABS: Troponin I < 0.05 ng/mL (<0.06)
[2021-08-10 13:34] LABS: Magnesium 2.1 mg/dL (1.8-2.4); NT-proBNP 14 pg/mL (<300)
[2021-08-10 13:36] LABS: D-Dimer 923 ng/mlFEU (<500)
[2021-08-10 13:45] LABS: Procalcitonin < 0.1 ng/mL
[2021-08-10 13:45] LABS: Ferritin 45 ng/mL (8-252)
[2021-08-10] MEDS: Normal Saline - Diluent 50 ML VIAL IV (14:56)
[2021-08-10] MEDS: Omnipaque 350 MG/ML 100 ML BTL IJ (14:57)
--- NOTE | 2021-08-10 17:37 | NUR.NOTE ---
pt ate a full dinner and finished her infusion. she anticipates discharge to home Nursing Note:
[2021-08-10 18:39] LABS: Troponin I < 0.05 ng/mL (<0.06)
== END 2021-08-10 18:58 | disposition home or self-care (01) ==
PROVIDERS: Emergency Provider Physician Assistant; PCP Family Medicine
DX: U07.1 COVID-19 (principal); R06.02 Shortness of breath; R07.9 Chest pain, unspecified; D64.9 Anemia, unspecified
CPT/HCPCS: 36415; 36416; 71275; 80053; 82962; 84145; 93005; 96360; 96365; 99285; 81003; 82728; 83605; 83615; 83735; 83880; 84484; 85025; 85379; 86140; 93010; 99284; J3490

== ENCOUNTER → 2021-09-22 10:37 | Outpatient (BNVA) | payer MEDICARE, SELFPAY | PROVIDERS: PCP Family Medicine; Referring Provider Family Medicine; Visit Provider Internal Medicine Cardiovascular Disease | DX: I25.10 Atherosclerotic heart disease of native coronary artery without angina pectoris (principal); E78.5 Hyperlipidemia, unspecified; I25.2 Old myocardial infarction | CPT/HCPCS: 99213 ==

== ENCOUNTER 2022-01-21 01:54 | Outpatient (CLI) | payer MEDICARE, SELFPAY ==
[2022-01-21 07:54] LABS: Hemoglobin A1C 11.4 % (<5.7)
[2022-01-21 08:00] LABS: Microalb ug/mg Crea 36.8 ug/mg Cr
[2022-01-21 08:05] LABS: ALT 27 U/L (14-59); AST 16 U/L (15-37); Albumin 3.8 g/dL (3.4-5.0); Alkaline Phosphatase 116 U/L (46-116); BUN 15 mg/dL (7-18); Bilirubin, Total 0.2 mg/dL (0.2-1.0); CREATININE 0.6 mg/dL (0.55-1.02); Calcium 9.1 mg/dL (8.5-10.1); Calculated LDL 218 mg/dL (<100); Chloride 102 mmol/L (98-107); Cholesterol 325 mg/dL (<200); Glucose 194 mg/dL (74-106); HDL Cholesterol 44 mg/dL (40-60); Potassium 4.8 mmol/L (3.5-5.1); Sodium 141 mmol/L (136-145); Total Protein 7.4 g/dL (6.4-8.2); Triglyceride 317 mg/dL (<150)
== END 2022-01-21 01:55 | disposition home or self-care (01) ==
PROVIDERS: PCP Family Medicine; Visit Provider Family Medicine
DX: E11.65 Type 2 diabetes mellitus with hyperglycemia (principal); I10 Essential (primary) hypertension
CPT/HCPCS: 36415; 80053; 80061; 82043; 82570; 83036

== ENCOUNTER → 2022-03-23 10:39 | Outpatient (BNVA) | payer MEDICARE, SELFPAY | PROVIDERS: PCP Nurse Practitioner; Visit Provider Internal Medicine Cardiovascular Disease | DX: I25.10 Atherosclerotic heart disease of native coronary artery without angina pectoris (principal); E78.5 Hyperlipidemia, unspecified | CPT/HCPCS: 99213 ==

== ENCOUNTER → 2022-03-24 01:55 | Outpatient (CLI) | payer MEDICARE, SELFPAY ==
--- NOTE | 2022-03-24 07:45 | DI.MAMMO_ITS ---
Exam(s) MAMMO SCREENING EXAM: MAMMO SCREENING CLINICAL HISTORY: screening,z12.39. TECHNIQUE: Bilateral full field digital CC and MLO mammographic images were obtained with 3D tomosyn thesis and utilizing computer aided detection (CAD). COMPARISON: Prior mammograms were reviewed, the most recent being September 2020. FINDINGS: There has been no significant change in appearance and distribution fibroglandular tissue. There are no new spiculated masses nor malignant appearing microcalcification groups. There is no significant architectural distortion nor skin thickening-retraction. IMPRESSION: No radiographic evidence of malignancy. BI-RADS Category 1 - Negative Breast Density - Category B - Scattered areas of fibroglandular density Breast density Category C or D implies that the patient has dense breast tissue. Dense breast tissue can make it harder to find cancer on a mammogram. Dense breast tissue is also associated with an incr eased risk of breast cancer. This information about the result of the mammogram report was provided to the patient to raise their awareness. Use this report when you speak with the patient about their risks for breast cancer, which includes their family history. At that time, you may recommend additional screening tests (Ultrasoun d or MRI) as these tests may add significant information. A negative radiographic report should not delay biopsy if a dominant or clinically suspicious mass is present. Up to ten percent of cancers are not identified on mammography. A negative report may reinforce clinical impression. Adenosis and dense breasts may obscure an underlying neoplasm. False positive reports average 6 to 10%. Patient will receive a letter notifying them of these results.
== END ==
PROVIDERS: PCP Nurse Practitioner; Visit Provider Nurse Practitioner
DX: Z12.31 Encounter for screening mammogram for malignant neoplasm of breast (principal)
CPT/HCPCS: 77063; 77067

== ENCOUNTER → 2022-03-26 00:42 | Outpatient (CLI) | payer MEDICARE, SELFPAY ==
--- NOTE | 2022-03-26 07:15 | DI.DEXA_ITS ---
Exam(s) XR DEXA BONE DENSITY W/WO JUAN EXAM: XR DEXA BONE DENSITY W/WO JUAN CLINICAL HISTORY: screenING FOR OSTEOPOROSIS IN POSTMENOPAUSAL WOMAN,Z78.0 TECHNIQUE: COMPARISON: No exams were available for comparison FINDINGS: Lateral Spine Image: Unremarkable. No compression deformities identified. Left hip: Total T-Score: -1.2 Total Z-Score: 0.1 T- and Z-scores: Findings are consistent with osteopenia. Lumbar Spine: Total T-Score: -1.4 Total Z-Score: 0.5 T- and Z-scores: Findings are consistent with osteopenia. IMPRESSION: No evidence of osteoporosis.
== END ==
PROVIDERS: PCP Nurse Practitioner; Visit Provider Nurse Practitioner
DX: M85.88 Other specified disorders of bone density and structure, other site (principal); Z78.0 Asymptomatic menopausal state
CPT/HCPCS: 77080

== ENCOUNTER 2022-04-08 10:28 | Emergency (ER) | payer MEDICARE, SELFPAY ==
[2022-04-08 10:38] VITALS: BP 145/75; PULSE 58; RESP 16; TEMP 37.2; O2SAT 96
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
--- NOTE | 2022-04-08 11:30 | DI.CT_ITS ---
Exam(s) CT SACRUM AND COCCYX WO EXAM: CT SACRUM AND COCCYX WO CLINICAL HISTORY: s/p fall, r/o acute fracture. TECHNIQUE: Imaging Protocol: Axial computed tomography images with coronal and sagittal reformatted images were created and reviewed. COMPARISON: CT abdomen pelvis 12 Mar 2020 FINDINGS: Bones: The last intervertebral disc space is designated the L5/S1 level for the numbering purpose of this examination. The vertebral body heights are well maintained. Alignment is satisfactory. L3-4 through L5-S1 L5-S1: No disc herniations or bulges are present. Facet joint degenerative changes . Sacrum: Nondisplaced fracture lower sacrum, seen best on lateral images.. SI joints: Spurring and vacuum phenomenon. Soft Tissues: . The paraspinal soft tissues show mild cysts stranding in the soft tissues posterior to the lower sacral fracture.. Aorta and iliac arteries normal diameter with moderate calcification. Bladder and uterus and visualized portions of bowel unremarkable. IMPRESSION: Nondisplaced fracture of the lower sacrum. Results of this exam have been verbally communicated with emergency department provider. RADIATION DOSE DELIVERED: 632.75mGy.cm Total DLP DATA REPOSITORY: All CT scans at this facility are submitted to the National Radiology Data Registry (NRDR) Dose Index Registry (DIR) with the [employer] (ACR). RADIATION OPTIMIZATION: All CT scans at this facility use at least one of these dose optimization te chniques: automated exposure control; mA and/or kV adjustment per patient size (includes targeted exa ms where dose is matched to clinical indication); or iterative reconstruction.
[2022-04-08] MEDS: oxyCODONE 5 MG TAB PO (11:52)
== END 2022-04-08 13:49 | disposition home or self-care (01) ==
PROVIDERS: Emergency Provider Physician Assistant; PCP Nurse Practitioner
DX: S32.19XA Other fracture of sacrum, initial encounter for closed fracture (principal); W01.0XXA Fall on same level from slipping, tripping and stumbling without subsequent striking against object, initial encounter
CPT/HCPCS: 99284; 72192; 99283

== ENCOUNTER 2022-05-19 03:07 | Outpatient (CLI) | payer MEDICARE, SELFPAY ==
[2022-05-19 12:29] LABS: HCT 35.8 % (36.0-46.0); HGB 10.4 g/dL (11.2-15.7); MCHC 29.1 % (32.0-36.0); MPV 10.9 fL (8.0-11.0); Platelet Count 333 10^3/uL (130-400); RDW 18.7 % (11.7-14.6); RDW-SD 47.3 fL; WBC 8.25 10^3/uL (4.4-10.8)
[2022-05-19 12:44] LABS: Calculated LDL 142 mg/dL (<100); Cholesterol 220 mg/dL (<200); HDL Cholesterol 41 mg/dL (40-60); Triglyceride 186 mg/dL (<150)
[2022-05-19 12:54] LABS: MCV 72 fL (80-95)
[2022-05-19 12:55] LABS: MCH 20.8 pg (27.0-33.0)
== END 2022-05-19 03:08 | disposition home or self-care (01) ==
LOC: LOS 03:08
PROVIDERS: PCP Nurse Practitioner; Visit Provider Nurse Practitioner
DX: E11.9 Type 2 diabetes mellitus without complications (principal)
CPT/HCPCS: 36415; 80061; 85027

== ENCOUNTER → 2023-10-27 12:43 | Outpatient (BNVA) | payer MEDICARE, SELFPAY | PROVIDERS: PCP Registered Nurse; Referring Provider Registered Nurse; Visit Provider Student in an Organized Health Care Education/Training Program | DX: R06.00 Dyspnea, unspecified (principal); R59.0 Localized enlarged lymph nodes; Z87.891 Personal history of nicotine dependence | CPT/HCPCS: 99215 ==

== ENCOUNTER → 2024-01-12 15:01 | Outpatient (BNVA) | payer MEDICARE, SELFPAY | PROVIDERS: PCP Registered Nurse; Referring Provider Registered Nurse; Visit Provider Student in an Organized Health Care Education/Training Program | DX: D86.9 Sarcoidosis, unspecified (principal) | CPT/HCPCS: 99214 ==